=== PATIENT | male | born 1990 | race Caucasian/White ===

== ENCOUNTER 2020-04-27 11:28 | Emergency (ER) | payer SELFPAY ==
[2020-04-27 11:36] VITALS: BP 143/89; PULSE 67; RESP 16; TEMP 36.9; O2SAT 100; BMI 25.8
--- NOTE | 2020-04-27 12:01 | CT_ITS ---
WS: [id number] CT ABDOMEN AND PELVIS NONCONTRAST HISTORY: Left flank pain, history of kidney stones TECHNIQUE: Imaging performed through the abdomen and pelvis. Coronal and sagittal reformats are submi tted. All CT scans at [facility] use at least one of these dose optimization techniques: automated exposure control; mA and/or kV adjustment per patient size (includes targeted exams where d ose is matched to clinical indication); or iterative reconstruction. DLP: 877.4 mGy.cm COMPARISON: None available. Lower thorax: Lung bases are clear. Visualized heart is normal. No hiatal hernia. Liver: Mild hepatic steatosis. Liver is top normal size with no bile duct dilatation or mass. Gallbladder: Normal gallbladder. Pancreas: Normal size and attenuation. Normal pancreatic duct. No pancreatitis or mass. Spleen: Normal. Adrenal glands: Normal. No mass. Right kidney: No hydronephrosis or perinephric stranding. Nonobstructing calcifications in the centra l pelvis. Largest measures 3 mm in the lower pole. Normal RIGHT ureter. Left kidney: Normal size kidney. Mild LEFT hydronephrosis secondary to an irregular shaped or several adjacent calcifications in the proximal LEFT ureter. The entire cluster extends over length of 11 mm and AP by 8 mm. Additional numerous nonobstructing calcifications in the renal pelvis. Aorta: Normal abdominal aorta, no aneurysm or atherosclerosis. Small mesenteric and RIGHT lower quadrant lymph nodes. GI tract: The appendix is been removed. No GI tract obstruction. Abdominal wall: Negative. No hernia. Pelvis: Normally distended urinary bladder. No free fluid in the pelvis. Osseous structures: L4 bilateral pars defects. CT/CT kidney stone [id number] IMPRESSION: 1. Mild LEFT hydronephrosis secondary to an irregular single calcification or cluster of calcifications in the proximal ureter measuring 11 x 8 mm. 2. Additional bilateral nephrolithiasis which are nonobstructing. 3. Prior appendectomy.
[2020-04-27 12:03] VITALS: BP 161/74; PULSE 69; RESP 18; O2SAT 97
--- NOTE | 2020-04-27 12:03 | W.ED.ABDPA2 ---
HPI - Abdominal Pain General: Chief Complaint: Abdominal Pain Stated Complaint: left flank/abd pain Time Seen by Provider: 04/27/20 11:46 Source: patient Mode of arrival: ambulatory Limitations: no limitations History of Present Illness: MD elicited complaint: flank pain Pertinent past history: kidney stones Onset (ago): week(s) (2) Pain Consistency: intermittent Location: None Severity: moderate Quality: stabbing Exacerbating factors: nothing Relieving factors: nothing Associated Symptoms: Reports nausea and vomiting (one time today); Denies anorexia, belching, bloating, change in bowel habits, change in stool character, chills, coffee ground emesis, constipation, GI cramping, diarrhea, dyspepsia, dysuria, excessive flatus, fever(s), heartburn, hematochezia, hematuria, hematemesis, fecal incontinence, loose stools, melena, poor appetite and syncope Review of Systems General: Reports: 10 or more systems reviewed and unremarkable except in HPI and below Const: Denies: fever(s) or chills Eyes: Denies: change in vision or blurry vision ENMT: Denies: throat pain, enlarged tonsils, odynophagia, hoarseness, mouth pain or swelling of lips/tongue Card: Denies: syncope Resp: Denies: dyspnea, productive cough or non-productive cough GI: Reports: nausea and vomiting (one time today); Denies: hematemesis, coffee ground emesis, heartburn, diarrhea, constipation, bloating, GI cramping, belching, excessive flatus, fecal incontinence, change in bowel habits, change in stool character, hematochezia or melena : Denies: dysuria or hematuria Musc: Denies: neck pain, back pain or extremity swelling Skin/Breast: Denies: rash, pruritus or erythema Neuro: Denies: headache(s), numbness in extremities or weakness in extremities Endo: Denies: polyuria, polydipsia or tired all the time PFSH ED PFSH: Social History (Reviewed 04/27/20 @ 12:05 by Esau Galarza MD, [facility] – [place]) Smoking and tobacco status: never smoked Alcohol intake: never Substance/Drug Use: never Physical Exam Const: COMMON NORMALS: no acute distress, average body habitus, patient oriented x3, no limitations, healthy appearing, alert and well nourished Neck/C-Spine: COMMON NORMALS: no meningeal signs and no JVD Resp: COMMON NORMALS: normal respiratory effort, No retractions, No use of accessory muscles, clear to auscultation bilaterally and percussion normal AUSCULTATION: clear to auscultation bilaterally PERCUSSION: percussion normal Cardio: COMMON NORMALS: no JVD, regular rate, regular rhythm, S1 normal heart sound present, S2 normal heart sound present, No gallops present (Cardio), No clicks present (Cardio), No murmurs present (Cardio), No rub (Cardio) and Peripheral pulses 2+ throughout RATE: regular rate RHYTHM: regular rhythm HEART SOUNDS: S1 normal heart sound present and S2 normal heart sound present PERIPHERAL PULSES: Peripheral pulses 2+ throughout GI: COMMON NORMALS: Normal to inspection, nondistended, normoactive bowel sounds present, Soft to palpation, non-tender, No hepatosplenomegaly present, no masses and no bruits PALPATION: Yes Soft to palpation and Yes No hepatosplenomegaly present Back/Pelvis: GENERAL BACK: Yes CVA tenderness CVA tenderness: left Extremity: COMMON NORMALS: normal to inspection, full ROM, capillary refill normal, no calf tenderness and no pedal edema Neuro: COMMON NORMALS: patient oriented x3 SENSORIUM/ORIENTATION: Yes alert MENINGEAL SIGNS: Yes no meningeal signs Skin: COMMON NORMALS: no rashes or lesions noted, no wounds, turgor normal, no jaundice, no petechiae and no mottling GENERAL SKIN EXAM: no rashes or lesions noted and turgor normal Course Reevaluation(s): Reevaluation #1: Discussed his lab and imaging findings with him. Urinalysis is still pending but he has a pretty large calculus in his left ureter measuring 11 x 8 mm. He will likely need surgical removal and will call the urologist for further advice. Time: 13:02 Reevaluation #2: Explained my conversation with the urologist to him. Give him all the instruction by the urologist. We will discharge him home on oral pain medication. He voiced understanding and is in agreement with the plan. Time: 13:35 Consultations: Consultation #1: Discussed the patient with Dr. De Oliveira, urologist. He will see the patient in the office on Thursday since no signs of infection and pain is well controlled. On Thursday he would perform shockwave therapy to break the stones up. Patient should be n.p.o. from midnight on Thursday but can drink clear liquids up to 8 AM on Thursday. He should take laxatives on Thursday also. Obtain a KUB in the emergency department today so he can compare on Thursday when he gets another one. Time: 13:25 Vital Signs: Vital signs: Vital Signs Temperature 97.6 F 04/27/20 13:50 Pulse Rate 76 04/27/20 13:50 Respiratory Rate 18 04/27/20 13:50 Blood Pressure 129/71 04/27/20 13:50 Pulse Oximetry 96 04/27/20 13:50 MDM - Abdominal Pain MDM Narrative: Medical decision making narrative: Patient with a large ureteric calculus that will not pass. He has had pain for about 2 weeks from this calculus. Pain was well controlled in the emergency department and he will follow up with the urologist on Thursday for lithotripsy. No signs of urinary tract infection, and no white cell count elevation. Medical Records: Attestation: I reviewed the patient's medical records. Lab Data: Attestation: I reviewed the patient's lab results. Labs: Lab Results 04/27/20 04/27/20 04/27/20 Range/Units 12:02 12:02 12:46 WBC 8.8 (4.0-10.0) 10^3/ uL RBC 5.49 H (4.1-5.3) 10^6/u L Hgb 15.3 (11.7-16.6) g/dL Hct 48.0 (42.0-52.0) % MCV 87.4 (80-94) fL MCH 27.9 L (28.0-34.0) pg MCHC 31.9 (30.0-36.0) g/dL RDW 13.3 (12.1-15.1) % Plt Count 280 (130-400) 10^3/c mm MPV 9.7 (7.4-10.4) fL Neut % (Auto) 77.1 % Lymph % (Auto) 15.8 % [place] % (Auto) 4.8 % Eos % (Auto) 1.5 % Baso % (Auto) 0.6 % Neut # (Auto) 6.76 (1.8-7.7) 10^3/u L Lymph # (Auto) 1.4 (0.8-4.8) 10^3/u L [place] # (Auto) 0.4 (0.2-0.9) 10^3/u L Eos # (Auto) 0.1 (0.0-0.8) 10^3/u L Baso # (Auto) 0.1 (0.0-0.1) 10^3/u L Nucleated RBC % (a uto) 0 % Nucleated RBCs # 0.0 /100WBC Sodium 141 (136-145) mmol/L Potassium 4.4 (3.5-5.1) mmol/L Chloride 104 (98-107) mmol/L Carbon Dioxide 27 (22-29) mmol/L Anion Gap 14.4 (5-19) BUN 12 (6-20) mg/dL Creatinine 1.1 (0.7-1.2) mg/dL GFR Calculation 79.1 L (90-130) mL/min Glucose 109 (65-115) mg/dL Calculated Osmolal ity 292 (285-295) mOsm/k g Calcium 10.1 (8.5-10.5) mg/dL Total Bilirubin 0.5 (0.15-1.2) mg/dL AST 19 (0-40) U/L ALT 25 (0-41) U/L Alkaline Phosphata se 90 (40-130) IU/L Total Protein 8.3 (6.6-8.7) g/dL Albumin 5.1 (3.5-5.2) g/dL Globulin 3.2 (1.3-4.6) g/dL Lipase 31 (13-60) U/L Urine Color Yellow (Yellow) Urine Appearance Clear (CLEAR) Urine pH 8 H (5-7) Ur Specific Gravit y 1.010 (1.005-1.030) Urine Protein Neg (Negative) Urine Glucose (UA) Norm (Normal) Urine Ketones Negative (Negative) Urine Blood 3+ H (Negative) Urine Nitrate Negative (Negative) Urine Bilirubin Neg (Negative) Prot Sulfosalicyli c Acd Negative (Negative) Urine Urobilinogen Norm (Negative) mg/dL Ur Leukocyte Jessica ase Negative (Negative) Urine RBC 15-25 H (0-2) /hpf Urine WBC None (0-5) /hpf Ur Squamous Epith Cells 0-4 H (0-5) /hpf Amorphous Sediment Not Reportable Urine Bacteria Trace (NONE) /hpf Hyaline Casts 0-4 H /lpf Urine Mucus 1+ /hpf Imaging Data ^: CT Abd/Pel: Radiologist's impression: [facility] [address] [place] [address] CT Scan Report Signed Patient: Anjel Wallace #: [id number] : 1990Acct#:[id number] Age/Sex: 30 / MADM Date: 04/27/20 Loc: ERRoom/Bed: Attending Dr: Ordering Provider/Ordering MD: Esau Galarza MD, [facility] – [place] Date of Service: 04/27/20 Procedure(s): CT kidney stone 39455 Accession Number(s): [id number] Report Number: [id number] WS: [id number] CT ABDOMEN AND PELVIS NONCONTRAST HISTORY: Left flank pain, history of kidney stones TECHNIQUE: Imaging performed through the abdomen and pelvis. Coronal and sagittal reformats are submitted. All CT scans at [facility] use at least one of these dose optimization techniques: automated exposure control; mA and/or kV adjustment per patient size (includes targeted exams where dose is matched to clinical indication); or iterative reconstruction. DLP: 877.4 mGy.cm COMPARISON: None available. Lower thorax: Lung bases are clear. Visualized heart is normal. No hiatal hernia. Liver: Mild hepatic steatosis. Liver is top normal size with no bile duct dilatation or mass. Gallbladder: Normal gallbladder. Pancreas: Normal size and attenuation. Normal pancreatic duct. No pancreatitis or mass. Spleen: Normal. Adrenal glands: Normal. No mass. Right kidney: No hydronephrosis or perinephric stranding. Nonobstructing calcifications in the central pelvis. Largest measures 3 mm in the lower pole. Normal RIGHT ureter. Left kidney: Normal size kidney. Mild LEFT hydronephrosis secondary to an irregular shaped or several adjacent calcifications in the proximal LEFT ureter. The entire cluster extends over length of 11 mm and AP by 8 mm. Additional numerous nonobstructing calcifications in the renal pelvis. Aorta: Normal abdominal aorta, no aneurysm or atherosclerosis. Small mesenteric and RIGHT lower quadrant lymph nodes. GI tract: The appendix is been removed. No GI tract obstruction. Abdominal wall: Negative. No hernia. Pelvis: Normally distended urinary bladder. No free fluid in the pelvis. Osseous structures: L4 bilateral pars defects. CT/CT kidney stone [id number] IMPRESSION: 1. Mild LEFT hydronephrosis secondary to an irregular single calcification or cluster of calcifications in the proximal ureter measuring 11 x 8 mm. 2. Additional bilateral nephrolithiasis which are nonobstructing. 3. Prior appendectomy. Dictated By:Flaca Solis DO Signed By:Flaca Solis DOSigned Date/Time:04/27/20 1246 DD/ 1241 Other Xray: Radiologist's impression: [email or web address] [address] XRay Report Signed Patient: Anjel Wallace #: [id number] : 1990Acct#:[id number] Age/Sex: 30 / MADM Date: 04/27/20 Loc: ERRoom/Bed: Attending Dr: Ordering Provider/Ordering MD: Esau Galarza MD, [facility] – [place] Date of Service: 04/27/20 Procedure(s): XR KUB 24438 Accession Number(s): [id number] Report Number: [id number] WS: [id number] ABDOMEN: SUPINE FILM HISTORY: Preop COMPARISON: CT same day 04/27/2020. Normal bowel gas pattern. No no bone abnormality. Right kidney: No renal or ureteral stone identified. Left kidney: Cluster calcifications measures 9 mm in length and the LEFT upper abdomen. Corresponds to the single irregular calcification or cluster proximal ureteral calcifications. XR/XR KUB [id number] IMPRESSION: Proximal LEFT ureteral calcifications extend over a length of 9 mm. Dictated By:Flaca Solis DO Signed By:Flaca Solis DOSigned Date/Time:04/27/20 1356 DD/ 1355 Discharge Plan Discharge Patient Disposition: Home Clinical Impression: Ureteric calculus, Hydronephrosis due to obstruction of ureter Condition: Stable Prescriptions: New hydrocodone-acetaminophen 10-325 mg tablet 1 tab PO Q6H PRN (Reason: pain) Qty: 12 RF: 0 No Action No Known Home Medications RF: 0 Discharge Orders: Discharge Order (Routine); Ordered 04/27/20 Ordered By: Esau Galarza Referrals: Viet De Oliveira MD [Physician] - 04/30/20 8:00 am Discharge Diet: Usual diet Discharge Activity: Increase activity as tolerated Patient Instructions: Kidney Stones (ED), Renal Colic (ED) Activity Restrictions/Additional Instructions: Return for any new or worsening symptoms. Follow-up at the office of Dr. De Oliveira on Thursday04/30/20 at 8 AM for evaluation and shockwave therapy for your kidney stones. No food after midnight on Thursday into Thursday, but she can have clear liquids until 8 AM on Thursday. After 8 AM on Thursday nothing to eat or drink. Take laxatives on Thursday to clear your bowels. Further instructions will be given to you by the urologist. Coding Level of Care Code ED Senior Consultant for Chg Fwd Exam Comprehensive
[2020-04-27] MEDS: ketorolac 30 mg/mL INJ IVP (12:09)
[2020-04-27 12:12] LABS: Basophils # 0.1 10^3/uL (0.0-0.1); Basophils % 0.6 %; Eosinophils # 0.1 10^3/uL (0.0-0.8); Eosinophils % 1.5 %; Hemoglobin 15.3 g/dL (11.7-16.6); Lymphocytes # 1.4 10^3/uL (0.8-4.8); Lymphocytes % 15.8 %; Mean Corpuscular HGB Conc 31.9 g/dL (30.0-36.0); Mean Corpuscular Hemoglobin 27.9 pg (28.0-34.0); Mean Corpuscular Volume 87.4 fL (80-94); Mean Platelet Volume 9.7 fL (7.4-10.4); Monocytes # 0.4 10^3/uL (0.2-0.9); Monocytes % 4.8 %; Neutrophils # 6.76 10^3/uL (1.8-7.7); Neutrophils % 77.1 %; Nucleated Red Blood Cells % 0 %; Platelet Count 280 10^3/cmm (130-400); Red Blood Count 5.49 10^6/uL (4.1-5.3); Red Cell Distribution Width 13.3 % (12.1-15.1); White Blood Count 8.8 10^3/uL (4.0-10.0)
[2020-04-27 12:41] LABS: Alanine Aminotransferase 25 U/L (0-41); Albumin Level 5.1 g/dL (3.5-5.2); Alkaline Phosphatase 90 IU/L (40-130); Anion Gap 14.4 (5-19); Aspartate Amino Transferase 19 U/L (0-40); Blood Urea Nitrogen 12 mg/dL (6-20); Calcium 10.1 mg/dL (8.5-10.5); Carbon Dioxide 27 mmol/L (22-29); Chloride 104 mmol/L (98-107); Globulin 3.2 g/dL (1.3-4.6); Glomerular Filtration Rate 79.1 mL/min (90-130); Glucose 109 mg/dL (65-115); Lipase 31 U/L (13-60); Osmolality Calculated 292 mOsm/kg (285-295); Potassium 4.4 mmol/L (3.5-5.1); Sodium 141 mmol/L (136-145); Total Bilirubin 0.5 mg/dL (0.15-1.2); Total Protein 8.3 g/dL (6.6-8.7)
[2020-04-27 13:18] LABS: Add Urine Microscopic? YES; Bilirubin Urine Neg (Negative); Blood Urine 3+ (Negative); Glucose Urine UA Norm (Normal); Ketones Urine Negative (Negative); Leukocyte Esterase Urine Negative (Negative); Nitrate Urine Negative (Negative); Protein Urine Neg (Negative); Sulfosalicylic Acid Urine Negative (Negative); Urine Appearance Clear (CLEAR); Urine Color Yellow (Yellow); Urobilinogen Urine Norm (Negative); pH Urine 8 (5-7)
[2020-04-27 13:20] LABS: RBC Urine 15-25 /hpf (0-2); Squamous Epithelial Cell Urine 0-4 /hpf (0-5)
[2020-04-27 13:21] LABS: Add Urine Culture? No; Bacteria Urine TRACE /hpf; Hyaline Casts Urine 0-4 /lpf; Mucus Urine 1+ /hpf
[2020-04-27 13:33] VITALS: BP 126/71; PULSE 69; RESP 18; O2SAT 98
--- NOTE | 2020-04-27 13:40 | XR_ITS ---
WS: [id number] ABDOMEN: SUPINE FILM HISTORY: Preop COMPARISON: CT same day 04/27/2020. Normal bowel gas pattern. No no bone abnormality. Right kidney: No renal or ureteral stone identified. Left kidney: Cluster calcifications measures 9 mm in length and the LEFT upper abdomen. Corresponds t o the single irregular calcification or cluster proximal ureteral calcifications. XR/XR KUB [id number] IMPRESSION: Proximal LEFT ureteral calcifications extend over a length of 9 mm.
[2020-04-27 13:50] VITALS: BP 129/71; PULSE 76; RESP 18; TEMP 36.4; O2SAT 96
== END 2020-04-27 14:00 | disposition home or self-care (01) ==
PROVIDERS: Emergency Provider Family Medicine
DX: N13.2 Hydronephrosis with renal and ureteral calculous obstruction (principal)
CPT/HCPCS: 12345; 74018; 74176; 80053; 81001; 83690; 85025; 96374; 96375; 99283; J1885

== ENCOUNTER 2020-04-30 08:37 | Outpatient (CLI) | payer SELFPAY ==
--- NOTE | 2020-04-30 08:46 | XRR_ITS ---
PROCEDURE INFORMATION: Exam: XR Abdomen, 1 View Exam date and time: 04/30/2020 8:57 AM Age: 30 years old Clinical indication: Condition or disease; Other: Stones; Prior surgery; Surgery type: Hernia TECHNIQUE: Imaging protocol: XR of the abdomen. Views: Frontal supine view of the abdomen. 1 View. COMPARISON: CR XR KUB [id number] 04/27/2020 1:43 PM FINDINGS: Gastrointestinal tract: Normal. No bowel dilation. Organs: Multiple calcifications project on the left kidney. There is stable position of a 9 mm calcification projecting on the proximal left ureter. No other abnormal calcifications are seen. Bones/joints: Unremarkable. XR/XR KUB [id number] IMPRESSION: No change in the left renal calcifications in the position of the proximal left ureteral calculus.
== END 2020-04-30 08:38 | disposition home or self-care (01) ==
LOC: RAD 08:44
PROVIDERS: Visit Provider Urology
DX: N20.1 Calculus of ureter (principal)
CPT/HCPCS: 74018; 81003

== ENCOUNTER 2020-04-30 11:59 | Day surgery (SDC) | payer SELFPAY ==
[2020-04-30 12:11] VITALS: BMI 25.4
[2020-04-30] MEDS: sodium chloride 0.9% 1,000 ML 30 ML IV (12:46)
--- NOTE | 2020-04-30 13:17 | W.PM.OPSUD ---
Surgery/Procedure H&P Update DATE OF PROCEDURE: April 30, 2020 DATE H&P PERFORMED: 04/30/20 H&P UPDATE INFORMATION: I have reviewed H&P completed within last 30 days, I have examined patient prior to procedure, No changes to prior documentation and H&P is in [facility] EMR on date indicated PREOP DIAGNOSIS: Refractory left renal colic secondary to large left ureteral calculus PLANNED PROCEDURE: Operation Date: 04/30/20 13:45 Proposed Procedures p Cystoscopy 81592 38534 N20.1(Not Applicable) - Viet De Oliveira MD s Ureteral Stent Placement(Not Applicable) - Viet De Oliveira MD s ESWL(Not Applicable) - Viet De Oliveira MD
--- NOTE | 2020-04-30 13:34 | P.ANESASSM_ITS ---
Pre-Anesthetic Assessment Pre-Anesthetic Assessment: Height/Weight: Height 1.75 m Weight 78.018 kg Preop Diagnosis: Refractory left renal colic secondary to large left ureteral calculus Proposed Procedure: Operation Date: 04/30/20 13:45 Proposed Procedures p Cystoscopy 13269 10755 N20.1(Not Applicable) - MD irlanda Allen Ureteral Stent Placement(Not Applicable) - Viet De Oliveira MD s ESWL(Not Applicable) - Viet De Oliveira MD Was Beta Manuel taken within 24 hours: N/A Last intake: Intake Last Liquid Date 04/30/20 Last Liquid Time 11: Last Solid Date 04/29/20 Last Solid Time 20:00 Social: Social History: Tobacco Comment: Chews tobacco Exam: Pre-Anes Outpt Exam: alert, oriented x 3, clear to auscultation bilaterally and regular rate & rhythm Airway: Submandibular: WNL Cervical ROM: WNL MP: 2 Dentition: Full History/ROS: No significant complaints Anesthetic Plan: ASA status: 1 Anesthesia: General Risk of > 500 ml blood loss (7ml/kg in children): No Meds/Allergies Current Medications: Current Medications Generic Name Dose Route Start Last Admin Trade Name Freq PRN Reason Stop Dose Admin Sodium Chloride 1,000 mls @ 30 ml s/hr 04/30/20 12:15 04/30/20 12:46 Sodium Chloride 0.9% IV 05/01/20 12:14 30 mls/hr .Q24H AAMIR Administration PFSH Anesthesia PFSH: Medical History Renal stones Surgical History History of eye surgery left History of nasal surgery stent Hx of inguinal hernia repair Family History Mother Heart disease Father Hyperlipidemia Hypertension Social History Smoking and tobacco status: never smoked Alcohol intake: current Alcohol intake frequency: holidays/special occasions only Marital status: Current occupational status: employed Current occupation: works in the [employer] History of recent travel: No Data Anesthesia Cardiac Studies: No Data to Display
--- NOTE | 2020-04-30 14:06 | P.OP_ITS ---
Operative Report Date of procedure: April 30, 2020 Pre-op Diagnosis: Refractory left renal colic secondary to 9 mm left proximal ureteral stone Pre-op Diagnosis: Multiple left renal calculi Post-op diagnosis: same Procedure Done: 1. Extracorporeal shockwave lithotripsy left proximal ureteral calculus, no stent Surgeon: Alvino Production Mechanic: Armand Lanier: Lithotripsy radiography technician Anesthesia: General Estimated blood loss: None Urine output: Not measured Complications: None Findings: Total of 3000 shocks administered with excellent change Condition: stable Disposition: PACU Brief History: Anjel is a very pleasant 30-year-old white male who was evaluated for the first time today by me in the office after being seen in the emergency department several days ago with complaints of severe left renal colicky symptoms. He was found to have a 9+ millimeter stone in the left proximal ureter with obstructive changes and multiple stones seen in the kidney. No evidence of infection. He has had intermittent pain since that time and KUB today showed no evidence of progression. He was offered further conservative therapy with hopes of spontaneous passage although it was felt that that was a fairly low chance. He was also offered intervention either endoscopically or with ESWL after detailed discussion of both he elected to proceed with ESWL and possible stent. Procedure: After urgent evaluation examination and obtaining of informed consent he was taken to the operating suite on 04/30/2020 where general anesthesia was administered without difficulty after appropriate timeout was performed, SCDs confirmed to be functioning, preoperative antibiotics administered, beta-yulia protocol confirmed. Positioned on the Dornier unit in supine position such that the left proximal ureteral stone was at the focal point. Biplanar fluoroscopy was utilized. Shockwave was initiated intensity of 1 and advanced an intensity of 4 with an approximately 3-minute pause after approximately 300 shocks. The stone demonstrated change at approximately: 150 shocks. It was dramatically changed at around 1250 shocks and in the focal point was shifted to multiple stones within the left kidney. Individually these were treated and all showed good response. This included a 3 to 4 stones. The final 1000 shocks to complete a total of 3000 was administered to the column of fragments in the proximal ureter At the completion of the procedure the change was dramatic. Because of these changes it was decided to NOT leave a stent indwelling. He tolerated the procedure well without complications and was awakened in the operating room and returned to the recovery in stable condition. PLANS: 1. Anticipate discharge from outpatient surgery today 2. Use pain medicine as needed 3. Prescription for TAMSULOSIN sent
[2020-04-30] MEDS: levofloxacin-dextrose 5 % 500 MG/100 ML PREMIX 100 MG IV (14:40)
[2020-04-30 15:41] VITALS: BP 160/101; PULSE 99; RESP 16; TEMP 36.7; O2SAT 98
[2020-04-30 15:45] VITALS: BP 167/98; PULSE 91; RESP 17; O2SAT 98
[2020-04-30 15:50] VITALS: BP 158/92; PULSE 87; RESP 16; TEMP 36.6; O2SAT 99
[2020-04-30 15:51] VITALS: BP 142/78; PULSE 80; RESP 16; TEMP 36.6; O2SAT 99
[2020-04-30 16:05] VITALS: BP 150/74; PULSE 71; RESP 16; TEMP 36.6; O2SAT 99
--- NOTE | 2020-04-30 17:09 | PM.PACU ---
PACU note PACU note: VSS Post-Anesthesia Exam: awake Disposition: discharged
== END 2020-04-30 16:35 | disposition home or self-care (01) ==
PROVIDERS: PCP Nurse Practitioner Family; Visit Provider Urology
PROC: (CPT 50590; 2020-04-30 13:45)
DX: N20.2 Calculus of kidney with calculus of ureter (principal)
CPT/HCPCS: 50590; 12345; J1100; J1956; J2405; J2704; J3010; J3490; J7030

== ENCOUNTER 2020-05-04 07:44 | Outpatient (CLI) | payer SELFPAY ==
--- NOTE | 2020-05-04 07:30 | XR_ITS ---
WS: [id number] KUB, 05/04/2020 Clinical Data: URETERAL STONE Comparison: KUB, 04/30/2020 Findings: No abnormal intraabdominal masses are seen. There is no dilatated small bowel or evidence of obstruct ion. There are calcifications overlying the left kidney. The largest calcification which was in the proxim al left ureter is not present. No right renal calcifications are seen. XR/XR KUB [id number] Impression: 1. 0.9 cm proximal left ureteral calcification is not seen. 2. Smaller calcifications still overlie the left kidney.
== END 2020-05-04 07:45 | disposition home or self-care (01) ==
LOC: RAD 07:47
PROVIDERS: PCP Nurse Practitioner Family; Visit Provider Urology
DX: N20.1 Calculus of ureter (principal); N20.0 Calculus of kidney
CPT/HCPCS: 74018; 81003; 82365

== ENCOUNTER → 2021-01-03 15:10 | Outpatient (BNVA) | payer OTHER, SELFPAY | PROVIDERS: PCP Nurse Practitioner Family; Visit Provider Nurse Practitioner Family | DX: Z20.822 Contact with and (suspected) exposure to COVID-19 (principal) | CPT/HCPCS: 87635 ==

== ENCOUNTER → 2021-01-05 16:41 | Outpatient (BNVA) | payer SELFPAY | PROVIDERS: PCP Nurse Practitioner Family; Visit Provider Registered Nurse Neonatal Intensive Care | DX: J02.0 Streptococcal pharyngitis (principal) | CPT/HCPCS: 87880 ==

== ENCOUNTER → 2021-05-01 15:17 | Outpatient (BNVA) | payer BC, SELFPAY | PROVIDERS: PCP Nurse Practitioner Family; Visit Provider Nurse Practitioner Family | DX: Z20.822 Contact with and (suspected) exposure to COVID-19 (principal) | CPT/HCPCS: 87635 ==

== ENCOUNTER → 2021-06-17 16:53 | Outpatient (BNVA) | payer BC, SELFPAY | PROVIDERS: PCP Nurse Practitioner Family; Visit Provider Nurse Practitioner Family | DX: Z20.822 Contact with and (suspected) exposure to COVID-19 (principal) | CPT/HCPCS: 87635 ==

== ENCOUNTER → 2022-03-07 10:43 | Outpatient (BNVA) | payer SELFPAY | PROVIDERS: PCP Nurse Practitioner Family; Visit Provider Nurse Practitioner Family | DX: R07.89 Other chest pain (principal) | CPT/HCPCS: 71046; 80053; 84443; 85025 ==

== ENCOUNTER 2022-06-05 13:39 | Inpatient (IN) | payer BC, SELFPAY ==
[2022-06-05 13:40] VITALS: BP 144/86; PULSE 92; RESP 16; TEMP 37.1; O2SAT 99
[2022-06-05 14:10] LABS: Basophils # 0.1 10^3/uL (0.0-0.1); Basophils % 0.5 %; Eosinophils # 0.3 10^3/uL (0.0-0.8); Eosinophils % 3.3 %; Hematocrit 43.6 % (42.0-52.0); Hemoglobin 14.4 g/dL (11.7-16.6); Lymphocytes # 1.9 10^3/uL (0.8-4.8); Lymphocytes % 19.7 %; Mean Corpuscular Hemoglobin 28.7 pg (28.0-34.0); Mean Corpuscular Volume 86.9 fl (80-94); Monocytes % 10.6 %; Neutrophils # 6.29 10^3/uL (1.8-7.7); Neutrophils % 65.6 %; Nucleated Red Blood Cells % 0 %; Platelet Count 236 10^3/cmm (130-400); Red Blood Count 5.02 10^6/uL (4.1-5.3); Red Cell Distribution Width 13.8 % (12.1-15.1); White Blood Count 9.6 10^3/uL (4.0-10.0)
[2022-06-05 14:36] LABS: Alanine Aminotransferase 23 U/L (0-41); Albumin Level 4.6 g/dL (3.5-5.2); Alkaline Phosphatase 94 U/L (40-130); Anion Gap 14.9 (5-19); Aspartate Amino Transferase 16 U/L (0-40); Blood Urea Nitrogen 10 mg/dL (6-20); Calcium 8.9 mg/dL (8.5-10.5); Carbon Dioxide 26 mmol/L (22-29); Chloride 101 mmol/L (98-107); Globulin 3.3 g/dL (1.3-4.6); Glomerular Filtration Rate 98.4 mL/min (90-130); Glucose 97 mg/dL (65-115); Osmolality Calculated 285 mOsm/kg (285-295); Potassium 3.9 mmol/L (3.5-5.1); Sodium 138 mmol/L (136-145); Total Bilirubin 0.9 mg/dL (0.15-1.2); Total Protein 7.9 g/dL (6.6-8.7)
--- NOTE | 2022-06-05 14:40 | CTR_ITS ---
PROCEDURE INFORMATION: Exam: CT Orbits With Contrast Exam date and time: 06/05/2022 3:13 PM Age: 32 years old Clinical indication: Mass, lump, or swelling; Other: Left orbit; Additional info: Concern for left orbital cellulitis TECHNIQUE: Imaging protocol: Computed tomography of the orbits with contrast. Radiation optimization: All CT scans at this facility use at least one of these dose optimization techniques: automated exposure control; mA and/or kV adjustment per patient size (includes targeted exams where dose is matched to clinical indication); or iterative reconstruction. Contrast material: OMNI 350; Contrast volume: 100 ml; Contrast route: INTRAVENOUS (IV); COMPARISON: MR head wo con* [id number] 05/13/2018 5:05 PM RADIATION DOSE METRICS: Total DLP (mGy-cm): 339.76 FINDINGS: Paranasal sinuses: Opacified left ethmoid sinuses. Trace debris in the left frontal and right anterior ethmoid sinuses. There is also mucosal thickening of the left sphenoid sinus. Orbital cavities: There is localized extension of the inflammatory changes of the left ethmoid sinuses extending into the extraconal orbital fat. Globes are unremarkable. Bones/joints: No acute fracture. Erosion through the left lamina papyracea. Soft tissues: Left preseptal soft tissue inflammation/swelling along with the left cheek. CT/CT orbit BI w con [id number] IMPRESSION: Multifocal sinusitis with localized extension into the left orbit consistent with orbital cellulitis. Findings were discussed with FADI DUNN at 06/05/2022 3:54 PM HOROLOGIST APPRENTICE.
--- NOTE | 2022-06-05 15:02 | ED_ITS ---
Documented by User: HARRIS Vegas 06/05/22 16:47 HPI - Eye Problem General: Chief complaint: Eye Problems Stated complaint: eye swollen Time Seen by Provider: 06/05/22 13:48 History of Present Illness: Patient sent here from urgent care for concern of left eye orbital cellulitis. Patient reports that last night his eyes started becoming red and somewhat painful. He reports that he woke up this morning there was swollen shut and very painful. Patient denies any injury to the eye that he is aware of. He denies any fever, chills, nausea, vomiting. He does report that he can see out of the eye if he holds the lids open. Associated symptoms: Denies fever(s) or headache(s) Review of Systems Const: Denies: fever(s), chills or body aches Eyes: Reports: other (Swelling, redness surrounding eye with eye pain) Card: Denies: chest pain or palpitations Resp: Denies: dyspnea, productive cough or non-productive cough Neuro: Denies: headache(s) PFS ED PFSH: Medical History Renal stones Surgical History History of eye surgery left History of nasal surgery stent Hx of inguinal hernia repair Family History Mother Heart disease Father Hyperlipidemia Hypertension Social History Smoking and tobacco status: former smoker Alcohol intake: current Alcohol intake frequency: holidays/special occasions only Marital status: Current occupational status: employed Current occupation: works in the [employer] History of recent travel: No Physical Exam Const: COMMON NORMALS: no acute distress, patient oriented x3 and alert Eye: OTHER: Left eye with erythema and edema encircling the entire eye including upper and lower lids extending over to the bridge of the nose. Eye is swollen shut. I am able to open the eyelids manually and patient reports baseline vision. He is able to move in all 6 cardinal lilly however he has increased eye pain with l ooking up or looking up into the left. The eye is tender To light palpation around the orbit and over the upper eyelid. Neck/C-Spine: COMMON NORMALS: no JVD Resp: COMMON NORMALS: normal respiratory effort, No use of accessory muscles and clear to auscultation bilaterally AUSCULTATION: clear to auscultation bilaterally Cardio: COMMON NORMALS: no JVD, regular rate, regular rhythm, S1 normal heart sound present, S2 normal heart sound present and No murmurs present (Cardio) RATE: regular rate RHYTHM: regular rhythm HEART SOUNDS: S1 normal heart sound present and S2 normal heart sound present Neuro: COMMON NORMALS: patient oriented x3 SENSORIUM/ORIENTATION: Yes alert Course Vital Signs: Vital signs: Vital Signs Temperature 98.8 F 06/05/22 13:40 Pulse Rate 92 06/05/22 13:40 Respiratory Rate 18 06/05/22 16:33 Blood Pressure 144/86 06/05/22 13:40 Pulse Oximetry 99 06/05/22 13:40 Oxygen Delivery Me thod 06/05/22 13:40 MDM - Eye Problem Medical Decision Making Concern for orbital cellulitis CT shows left-sided sinusitis with extension into the orbit?orbital cellulitis. Result called to me by radiologist at 2099. Paged ophthalmology at [phone] Franco Richardson who advised that he would transfer patient to either [facility] in [place] or [facility] as patient needs close monitoring of eye pressures given his current pain with EOMs. He advised the patient would likely require intervention. He recommends vancomycin plus gram-negative antibiotic coverage to be started. It is allergic to penicillin so vancomycin and Cipro were started. 1647?working to find acceptance for transfer. Lab Data 06/05/22 14:00 06/05/22 14:[address] 06/05/22 14:40 IMPRESSION: Multifocal sinusitis with localized extension into the left orbit consistent with orbital cellulitis. Findings were discussed with FADI DUNN at 06/05/2022 3:54 PM [employer]GE[employer]. Laboratory Results WBC 9.6 10^3/uL (4.0-10.0) 06/05/22 14:00 RBC 5.02 10^6/uL (4.1-5.3) 06/05/22 14:00 Hgb 14.4 g/dL (11.7-16.6) 06/05/22 14:00 Hct 43.6 % (42.0-52.0) 06/05/22 14:00 MCV 86.9 fl (80-94) 06/05/22 14:00 MCH 28.7 pg (28.0-34.0) 06/05/22 14:00 MCHC 33.0 g/dL (30.0-36.0) 06/05/22 14:00 RDW 13.8 % (12.1-15.1) 06/05/22 14:00 Plt Count 236 10^3/cmm (130-400) 06/05/22 14:00 MPV 10.0 fL (7.4-10.4) 06/05/22 14:00 Neut % (Auto) 65.6 % 06/05/22 14:00 Lymph % (Auto) 19.7 % 06/05/22 14:00 [place] % (Auto) 10.6 % 06/05/22 14:00 Eos % (Auto) 3.3 % 06/05/22 14:00 Baso % (Auto) 0.5 % 06/05/22 14:00 Neut # (Auto) 6.29 10^3/uL (1.8-7.7) 06/05/22 14:00 Lymph # (Auto) 1.9 10^3/uL (0.8-4.8) 06/05/22 14:00 [place] # (Auto) 1.0 10^3/uL (0.2-0.9) H 06/05/22 14:00 Eos # (Auto) 0.3 10^3/uL (0.0-0.8) 06/05/22 14:00 Baso # (Auto) 0.1 10^3/uL (0.0-0.1) 06/05/22 14:00 Nucleated RBC % (auto) 0 % 06/05/22 14:00 Nucleated RBCs # 0.0 /100WBC 06/05/22 14:00 Sodium 138 mmol/L (136-145) 06/05/22 14:00 Potassium 3.9 mmol/L (3.5-5.1) 06/05/22 14:00 Chloride 101 mmol/L (98-107) 06/05/22 14:00 Carbon Dioxide 26 mmol/L (22-29) 06/05/22 14:00 Anion Gap 14.9 (5-19) 06/05/22 14:00 BUN 10 mg/dL (6-20) 06/05/22 14:00 Creatinine 0.9 mg/dL (0.7-1.2) 06/05/22 14:00 GFR Calculation 98.4 mL/min (90-130) 06/05/22 14:00 Glucose 97 mg/dL (65-115) 06/05/22 14:00 Calculated Osmolality 285 mOsm/kg (285-295) 06/05/22 14:00 Calcium 8.9 mg/dL (8.5-10.5) 06/05/22 14:00 Total Bilirubin 0.9 mg/dL (0.15-1.2) 06/05/22 14:00 AST 16 U/L (0-40) 06/05/22 14:00 ALT 23 U/L (0-41) 06/05/22 14:00 Alkaline Phosphatase 94 U/L (40-130) 06/05/22 14:00 Total Protein 7.9 g/dL (6.6-8.7) 06/05/22 14:00 Albumin 4.6 g/dL (3.5-5.2) 06/05/22 14:00 Globulin 3.3 g/dL (1.3-4.6) 06/05/22 14:00 Discharge Plan Discharge Patient Disposition: Admitted As Inpatient Clinical Impression: Orbital cellulitis on right Condition: Stable Referrals: Lilly Khan FNP-C [Primary Care Provider] - Coding Level of Care Code ED Manager Database Administration for Chg Fwd Exam Expanded Problem Focused Documented by User: Adarsh Liang MD 06/05/22 17:36 HPI - Eye Problem General: Chief complaint: Eye Problems Stated complaint: eye swollen Time Seen by Provider: 06/05/22 13:48 PFSH ED PFSH: Medical History Renal stones Surgical History History of eye surgery left History of nasal surgery stent Hx of inguinal hernia repair Family History Mother Heart disease Father Hyperlipidemia Hypertension Social History Smoking and tobacco status: former smoker Alcohol intake: current Alcohol intake frequency: holidays/special occasions only Marital status: Current occupational status: employed Current occupation: works in the [employer] History of recent travel: No Course Vital Signs: Vital signs: Vital Signs Temperature 98.8 F 06/05/22 13:40 Pulse Rate 92 06/05/22 13:40 Respiratory Rate 18 06/05/22 16:33 Blood Pressure 144/86 06/05/22 13:40 Pulse Oximetry 99 06/05/22 13:40 Oxygen Delivery Me thod 06/05/22 13:40 MDM - Eye Problem Medical Decision Making Concern for orbital cellulitis CT shows left-sided sinusitis with extension into the orbit?orbital cellulitis. Result called to me by radiologist at 3192. Paged ophthalmology at [phone] Franco Richardson who advised that he would transfer patient to either [facility] in [place] or [facility] as patient needs close monitoring of eye pressures given his current pain with EOMs. He advised the patient would likely require intervention. He recommends vancomycin plus gram-negative antibiotic coverage to be started. It is allergic to penicillin so vancomycin and Cipro were started. 1647?working to find acceptance for transfer. Patient presents with orbital cellulitis noted intraocular pressures are c urrently 17 he has extraocular movement intact I spoke to Dr. Richardson of ophthalmology will admit here at this time did try to transfer there is no bed availability at [facility] or [facility] I spoke to the hospitalist will admit and Dr. Richardson is consulted for ophthalmology Lab Data 06/05/22 14:00 06/05/22 14:[address] 06/05/22 14:40
[2022-06-05] MEDS: iohexol 350 mg/mL 500 mL Btl (per mL) IV (15:18)
[2022-06-05 16:10] VITALS: RESP 18
[2022-06-05] MEDS: morphine 4 mg/mL SDV 1 mL 2 MG IVP ×2 (16:10→16:33)
[2022-06-05] MEDS: ondansetron 2 mg/ML SDV 2 mL 4 MG IVP (16:10)
[2022-06-05 16:33] VITALS: RESP 18
[2022-06-05] MEDS: tetracaine 0.5% Op Soln 4 mL Btl 1 DROP EYE-RIGHT (17:01)
[2022-06-05] MEDS: vancomycin 1,000 MG in sodium chloride 0.9% 250 ML 250 MG IV (17:55)
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
--- NOTE | 2022-06-05 18:51 | PC.NURSE ---
Stopped Vancomycin at 1845 due to pt c/o itching and slight redness noted on chest/abdomen. Will request order for Benadryl.
[2022-06-05] MEDS: diphenhydrAMINE 50 mg/mL SDV 1mL IVP (18:55)
[2022-06-05] MEDS: ciprofloxacin 400 MG/200 ML PREMIX 200 MG IV (18:58)
[2022-06-05 20:32] VITALS: BP 146/92; PULSE 81; RESP 20; TEMP 36.6; O2SAT 97
[2022-06-05 21:29] VITALS: RESP 16
[2022-06-05] MEDS: HYDROmorphone 1 mg/mL INJ 1 mL IVP (21:29)
[2022-06-05] MEDS: metroNIDAZOLE IV 500 MG/100 ML PREMIX 100 MG IV (21:35)
[2022-06-06] VITALS (13 sets, daily range): BP systolic 119–143; BP diastolic 77–89; PULSE 71–91; RESP 15–20; TEMP 36.4–37.1; O2SAT 97–98
[2022-06-06] MEDS: ketorolac 30 mg/mL INJ IVP ×2 (00:24→19:53)
[2022-06-06] MEDS: HYDROmorphone 1 mg/mL INJ 1 mL IVP ×2 (03:28→11:04)
[2022-06-06] MEDS: ciprofloxacin 400 MG/200 ML PREMIX 200 MG IV ×2 (03:31→17:08)
[2022-06-06] MEDS: metroNIDAZOLE IV 500 MG/100 ML PREMIX 100 MG IV ×3 (04:41→20:47)
[2022-06-06] MEDS: acetaminophen 325 mg Tablet 650 MG PO (04:46)
[2022-06-06 05:30] LABS: Basophils # 0.1 10^3/uL (0.0-0.1); Basophils % 0.8 %; Eosinophils # 0.3 10^3/uL (0.0-0.8); Hematocrit 41.3 % (42.0-52.0); Hemoglobin 13.1 g/dL (11.7-16.6); Lymphocytes % 25.6 %; Mean Corpuscular HGB Conc 31.7 g/dL (30.0-36.0); Mean Corpuscular Hemoglobin 28.1 pg (28.0-34.0); Mean Corpuscular Volume 88.6 fl (80-94); Mean Platelet Volume 10.5 fL (7.4-10.4); Neutrophils # 4.55 10^3/uL (1.8-7.7); Neutrophils % 57.3 %; Nucleated Red Blood Cells % 0 %; Platelet Count 207 10^3/cmm (130-400); Red Blood Count 4.66 10^6/uL (4.1-5.3); Red Cell Distribution Width 13.7 % (12.1-15.1); White Blood Count 7.9 10^3/uL (4.0-10.0)
[2022-06-06] MEDS: linezolid premix 600 MG/300 ML PREMIX 300 MG IV ×2 (05:52→18:31)
[2022-06-06 05:57] LABS: Anion Gap 13.1 (5-19); Blood Urea Nitrogen 14 mg/dL (6-20); Calcium 8.7 mg/dL (8.5-10.5); Carbon Dioxide 25 mmol/L (22-29); Chloride 102 mmol/L (98-107); Glomerular Filtration Rate 87.2 mL/min (90-130); Glucose 113 mg/dL (65-115); Osmolality Calculated 283 mOsm/kg (285-295); Potassium 4.1 mmol/L (3.5-5.1); Sodium 136 mmol/L (136-145)
--- NOTE | 2022-06-06 11:11 | PC.CHAP ---
Pastoral Care Encounter/Spiritual Assessment Type of Contact [] Declined behavioral geneticist visit [] Patient/Family/Request visit [] Outpatient visit [] Follow-up visit [] Physician referral [] Code/Alert [x] Routine visit [] Staff referral [] Actively dying [] Patient sleeping [x] Family support [] [] Out of room [] Palliative care [] [] Receiving care in room [] Pre-surgical visit [] Trauma [] Long length of stay [] ICU visit [] Other: Relational/Emotional Strength [x] Patient feels connected with others/family/visitors/staff [] Distress [] Loneliness/isolation [] Abandonment Spirituality of Patient [x] Person of Jerri [] Attends Tenriism of their Jerri [x] Believes in Prayer [] Reads Bible or Temple materials [] There are Spiritual issues to be addressed Radiologist Chief Of Breast Imaging Interventions [x] Prayer [] Active listening [] Non-anxious presence [] Spiritual/emotional support [] Crisis/trauma care [] Spiritual counseling [] Bereavement support [] Provided bereavement packet [] Provided Bible/devotional materials [] Provided toy/stuffed animal, coloring book to patient or family member [] Provided Communion [] Anointing/Garrett [] Salvation [x] Completed spiritual assessment [] Other: Impact on Illness or Injury [] Angry [] Fearful [] Anxious [] Often cries [] Exhaustion [] Unable to work [] Unable to attend mandaen [] Unable to walk/stand [] Unable to read [] Unable to drive [] Unable to eat/drink [] Unable to sleep [] Unable to be with family [] Patient intubated [] Other: Summary Time spent with patient 15 min
[2022-06-06] MEDS: oxyCODONE-APAP 5-325 mg Tablet 1 TAB PO (13:38)
[2022-06-06] MEDS: oxyCODONE-APAP 5-325 mg Tablet 2 TAB PO ×2 (18:29→22:40)
--- NOTE | 2022-06-06 20:47 | P.PN_ITS ---
Subjective Subjective: Early this morning he did not feel there was much change when he took the photo, however, later on showing some improvement. Decreasing swelling of the left eyelid. Still having pain and pain medication to be adjusted several times today due to his high metabolism. This morning was complaining of more pressure behind his eye. Abdominal probe essentially unavailable, but obtained eventually, however, reliable intraocular pressure initially could not be obtained. There are were able to be obtained by the glass mold repairer found to be 16. Vitals/I&O/Wt Last Vital Signs Temp 97.9 F 06/06/22 19:54 Pulse 86 06/06/22 19:54 Resp 16 06/06/22 19:54 BP 143/86 06/06/22 19:54 Pulse Ox 97 06/06/22 19:54 O2 Del Method 06/06/22 19:54 06/06/22 06/06/22 06/06/22 06:59 14:59 22:59 Intake Total 1500 / 2008.333 720 / 720 1200 / 1920 Output Total 950 / 950 Balance 1500 / 1808.333 -230 / -230 1200 / 970 Weight last 48 hrs Weight 80.739 kg Physical Exam Narrative: Accompanied by his . Const: COMMON NORMALS: patient oriented x3 and alert GENERAL APPEARANCE: cooperative ORIENTATION/CONSCIOUSNESS: Yes awake HENMT: COMMON NORMALS: oropharynx normal Eye: OTHER: Swollen red left eyelid with mild periorbital swelling, he is able to force open the eyelid without assistance, able to move his eye. Pupils equal. Vision is blurry without his contact. Neck/C-Spine: COMMON NORMALS: no JVD Resp: COMMON NORMALS: normal respiratory effort and clear to auscultation bilaterally AUSCULTATION: clear to auscultation bilaterally Cardio: COMMON NORMALS: no JVD, regular rhythm, S1 normal heart sound present, S2 normal heart sound present and No murmurs present (Cardio) RHYTHM: regular rhythm HEART SOUNDS: S1 normal heart sound present and S2 normal heart sound present GI: COMMON NORMALS: Normal to inspection, nondistended, normoactive bowel sounds present, Soft to palpation and non-tender PALPATION: Yes Soft to palpation Extremity: COMMON NORMALS: no joint enlargement and no pedal edema Neuro: COMMON NORMALS: patient oriented x3 and moves all extremities SENSORIUM/ORIENTATION: Yes alert Skin: COMMON NORMALS: no rashes or lesions noted (Apart from orbital cellulitis as above.) GENERAL SKIN EXAM: no rashes or lesions noted (Apart from orbital cellulitis as above.) Data 06/06/22 04:43 06/06/22 04:43 Micro: Microbiology 06/05/22 17:20 Blood Culture - Preliminary Blood NEGATIVE TO DATE 06/05/22 17:15 Blood Culture - Preliminary Blood NEGATIVE TO DATE A&P Assessment and plan (1) Orbital cellulitis on left: Mild improvement today in appearance of swelling over the left eyelid. Still in pain and in the morning complaining of some pressure. Later on today assessed also by ophthalmology. Intraocular pressure found to be 16. Continue antibiotics. This morning discussed with him also consideration of empiric antifungal, although he is concerned about adverse effects and overall as he is showing improvement and otherwise symptoms not suggestive of fungal infection for now antifungals held off. Per discussion with ophthalmology and started on steroid 80 mg prednisone. Continue empiric antibiotic coverage with ciprofloxacin due to penicillin allerg y. Vancomycin was stopped yesterday due to him developing rash and complain of itching during the infusion. Was switched over to linezolid. Flagyl for anaerobic coverage. Decongestants. Assessed by Ortho, so far not needing surgical intervention. Reported he may respond better to oxycodone for pain control. Added oxycodone 5 mg, with partial response increased to 10 mg. Hopefully this may reduce use of Dilaudid. Follow-up with ENT. Plan History of eye surgery, he reports with prior placement of a a stent , although reports that it was done due to him having difficulty moving his eye with healing. States that the stent is still in place. Discussed with Optho. Multifocal sinusitis: Initial treatment as above. Follow-up with ENT. History of kidney stones. EtOH, sometimes nightly up to 2-3 drinks which she states does not get them drawn, no history of withdrawal. Attestations Medical Necessity Statement*: Continue admission for assessment of management of orbital cellulitis. Coding Level of Care Code Acute Take Away Worker for Margarito Antoine Diagnoses Orbital cellulitis on left H05.012
--- NOTE | 2022-06-06 21:48 | PC.NURSE ---
pt requested medication to help him sleep, Dr. Tian notified and gave new order for Benadryl 50mg PO once for sleep.
[2022-06-06] MEDS: diphenhydrAMINE 50 mg Capsule PO (22:00)
[2022-06-07] VITALS (7 sets, daily range): BP systolic 125–154; BP diastolic 68–81; PULSE 78–97; RESP 16–18; TEMP 36.4–37.1; O2SAT 95–98
[2022-06-07] MEDS: ciprofloxacin 400 MG/200 ML PREMIX 200 MG IV ×2 (04:33→18:17)
[2022-06-07] MEDS: metroNIDAZOLE IV 500 MG/100 ML PREMIX 100 MG IV ×3 (05:02→21:17)
[2022-06-07 05:19] LABS: Basophils % 0.7 %; Eosinophils # 0.4 10^3/uL (0.0-0.8); Eosinophils % 5.9 %; Hematocrit 40.9 % (42.0-52.0); Hemoglobin 13.6 g/dL (11.7-16.6); Lymphocytes # 1.7 10^3/uL (0.8-4.8); Lymphocytes % 29.3 %; Mean Corpuscular HGB Conc 33.3 g/dL (30.0-36.0); Mean Corpuscular Hemoglobin 28.8 pg (28.0-34.0); Mean Corpuscular Volume 86.5 fl (80-94); Mean Platelet Volume 10.1 fL (7.4-10.4); Monocytes # 0.7 10^3/uL (0.2-0.9); Neutrophils # 3.11 10^3/uL (1.8-7.7); Neutrophils % 52.8 %; Nucleated Red Blood Cells % 0 %; Platelet Count 198 10^3/cmm (130-400); Red Blood Count 4.73 10^6/uL (4.1-5.3); Red Cell Distribution Width 13.3 % (12.1-15.1); White Blood Count 5.9 10^3/uL (4.0-10.0)
[2022-06-07 05:41] LABS: Anion Gap 12.1 (5-19); Blood Urea Nitrogen 11 mg/dL (6-20); Carbon Dioxide 25 mmol/L (22-29); Chloride 102 mmol/L (98-107); Glomerular Filtration Rate 98.4 mL/min (90-130); Glucose 108 mg/dL (65-115); Osmolality Calculated 280 mOsm/kg (285-295); Potassium 4.1 mmol/L (3.5-5.1); Sodium 135 mmol/L (136-145)
[2022-06-07] MEDS: linezolid premix 600 MG/300 ML PREMIX 300 MG IV ×2 (06:26→18:35)
[2022-06-07] MEDS: ketorolac 30 mg/mL INJ IVP (09:18)
[2022-06-07] MEDS: predniSONE 20 mg Tablet 80 MG PO (13:37)
[2022-06-07] MEDS: oxyCODONE 5 mg IR Tab/Cap PO ×2 (13:37→21:51)
--- NOTE | 2022-06-07 20:51 | P.PN_ITS ---
Subjective Subjective: Today with significant improvement in swelling, mild residual swelling but states still having pain about 7. Vision unchanged. Discussed with him recommendation for 2 weeks of IV antibiotics, he states he will not be able to do that. States he will be going back to work the day after and plans to discharge from the hospital tomorrow. Discussed with him risk of possible failure of therapy. 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 Recommend modified duties. He states that he knows how to keep his eye protected and to exercise caution with equipment. Discussed also would not be able to operate heavy machinery while on pain medication. He states overall pain has been improving, but he anticipates in case continue to progress with IV antibiotics and steroid he will wean off opioid tomorrow. Otherwise uses combination of acetaminophen and ibuprofen in case needs for pain control. Requests for shot of Benadryl for sleep tonight. Discussed with him concern regarding risks of this medicine. Discussed trazodone if needed for sleep with which he is agreeable. Vitals/I&O/Wt Last Vital Signs Temp 98.7 F 06/07/22 16:00 Pulse 86 06/07/22 16:00 Resp 16 06/07/22 16:00 BP 135/81 06/07/22 16:00 Pulse Ox 96 06/07/22 16:00 O2 Del Method 06/07/22 16:00 06/07/22 06/07/22 06/07/22 06:59 14:59 22:59 Intake Total 300 / 2320 540 / 540 580 / 1120 Balance 300 / 1370 540 / 540 580 / 1120 Physical Exam Const: COMMON NORMALS: patient oriented x3 and alert GENERAL APPEARANCE: cooperative ORIENTATION/CONSCIOUSNESS: Yes awake HENMT: COMMON NORMALS: oropharynx normal Eye: OTHER: Significant improvement in redness and swelling of left eyelid with near resolution of periorbital swelling. Eye stays open spontaneously with most of the iris visible. Pupils equal. Vision is blurry without his contact. Neck/C-Spine: COMMON NORMALS: no JVD Resp: COMMON NORMALS: normal respiratory effort and clear to auscultation bilaterally AUSCULTATION: clear to auscultation bilaterally Cardio: COMMON NORMALS: no JVD, regular rhythm, S1 normal heart sound present, S2 normal heart sound present and No murmurs present (Cardio) RHYTHM: regular rhythm HEART SOUNDS: S1 normal heart sound present and S2 normal heart sound present GI: COMMON NORMALS: Normal to inspection, nondistended, normoactive bowel sounds present, Soft to palpation and non-tender PALPATION: Yes Soft to palpation Extremity: COMMON NORMALS: no joint enlargement and no pedal edema Neuro: COMMON NORMALS: patient oriented x3 and moves all extremities SE NSORIUM/ORIENTATION: Yes alert Skin: COMMON NORMALS: no rashes or lesions noted (Apart from orbital cellulitis as above.) GENERAL SKIN EXAM: no rashes or lesions noted (Apart from orbital cellulitis as above.) Data 06/07/22 05:06 06/07/22 05:06 Micro: Microbiology 06/05/22 17:20 Blood Culture - Preliminary Blood NEGATIVE TO DATE 06/05/22 17:15 Blood Culture - Preliminary Blood NEGATIVE TO DATE A&P Assessment and plan (1) Orbital cellulitis on left: Significant improvement compared to yesterday with start decrease in palpable edema and erythema. He is able to keep eyes open spontaneously with most of the iris visible. Near resolution of periorbital edema. Continue IV antibiotic, he is also started on steroids today. He states will not do 2-week total IV antibiotic course. Agrees to continue with oral medication, likely switch to oral Cipro and linezolid plus minus Flagyl empirically since blood culture remains sterile. Per discussion with ophthalmology repeat CT orbits in the morning to confirm there are no residual abscesses needing drainage. Continue empiric antibiotic coverage with ciprofloxacin due to penicillin allergy. Vancomycin was stopped yesterday due to him developing rash and complain of itching during the infusion. Was switched over to linezolid. Flagyl for anaerobic coverage. Continue decongestants. Recommended by his request to switch to oxycodone IR from combination oxycodone acetaminophen as he states those do not work for him as well. If continues to improve he anticipates he will wean off opioid tomorrow. Follow-up with ENT. Plan History of eye surgery, he reports with prior placement of a a stent , although reports that it was done due to him having difficulty moving his eye with healing. States that the stent is still in place. Discussed with Optho. Multifocal sinusitis: Initial treatment as above. Follow-up with ENT. History of kidney stones. EtOH, sometimes nightly up to 2-3 drinks which she states does not get them drawn, no history of withdrawal. Attestations Medical Necessity Statement*: Continue admission for assessment and management of orbital cellulitis. 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
[2022-06-08] VITALS: BP 141/83; PULSE 106; RESP 17; TEMP 36.6; O2SAT 95
[2022-06-08] MEDS: trazodone 50 mg Tablet 25 MG PO (00:59)
[2022-06-08] MEDS: metroNIDAZOLE IV 500 MG/100 ML PREMIX 100 MG IV (03:55)
[2022-06-08 04:00] VITALS: BP 103/56; PULSE 77; RESP 17; TEMP 36.6; O2SAT 96
[2022-06-08] MEDS: ciprofloxacin 400 MG/200 ML PREMIX 200 MG IV (04:16)
[2022-06-08 05:53] LABS: Basophils % 0.2 %; Hematocrit 40.2 % (42.0-52.0); Hemoglobin 13.2 g/dL (11.7-16.6); Lymphocytes # 1.5 10^3/uL (0.8-4.8); Lymphocytes % 14.4 %; Mean Corpuscular HGB Conc 32.8 g/dL (30.0-36.0); Mean Corpuscular Hemoglobin 28.1 pg (28.0-34.0); Mean Corpuscular Volume 85.5 fl (80-94); Mean Platelet Volume 10.4 fL (7.4-10.4); Monocytes # 0.5 10^3/uL (0.2-0.9); Monocytes % 5.1 %; Neutrophils # 8.12 10^3/uL (1.8-7.7); Nucleated Red Blood Cells % 0 %; Platelet Count 278 10^3/cmm (130-400); Red Cell Distribution Width 13.2 % (12.1-15.1); White Blood Count 10.2 10^3/uL (4.0-10.0)
[2022-06-08 06:13] LABS: Anion Gap 14.2 (5-19); Blood Urea Nitrogen 16 mg/dL (6-20); Calcium 8.6 mg/dL (8.5-10.5); Carbon Dioxide 22 mmol/L (22-29); Chloride 104 mmol/L (98-107); Glomerular Filtration Rate 98.4 mL/min (90-130); Glucose 123 mg/dL (65-115); Osmolality Calculated 285 mOsm/kg (285-295); Potassium 4.2 mmol/L (3.5-5.1); Sodium 136 mmol/L (136-145)
[2022-06-08] MEDS: linezolid premix 600 MG/300 ML PREMIX 300 MG IV (06:15)
[2022-06-08 07:32] VITALS: BP 121/67; PULSE 68; RESP 17; TEMP 36.4; O2SAT 99
--- NOTE | 2022-06-08 09:00 | CTR_ITS ---
PROCEDURE INFORMATION: Exam: CT Orbits With Contrast Exam date and time: 06/08/2022 8:51 AM Age: 32 years old Clinical indication: Visual changes or disturbances; Discomfort; Additional info: Follow up to reassess for any residual abscess TECHNIQUE: Imaging protocol: Computed tomography of the orbits with contrast. Radiation optimization: All CT scans at this facility use at least one of these dose optimization techniques: automated exposure control; mA and/or kV adjustment per patient size (includes targeted exams where dose is matched to clinical indication); or iterative reconstruction. Contrast material: OMNI 350; Contrast volume: 100 ml; Contrast route: INTRAVENOUS (IV); COMPARISON: 1. CT orbit BI w con [id number] 06/05/2022 3:13 PM 2. Level. RADIATION DOSE METRICS: Total DLP (mGy-cm): 420.48 FINDINGS: Paranasal sinuses: Extensive left maxillary sinus mucosal thickening similar to prior study, with mild dependent fluid, slightly increased. Persistent opacification of multiple left ethmoid air cells. Persistent mild inferior right frontal sinus mucosal thickening. Orbital cavities: Improved soft tissues thickening in the subperiosteal medial left orbit, maximally measuring approximately 3.1 mm, previously 4.7 mm at the same. The right orbit is unremarkable. The bilateral ocular globes and intraconal soft tissues are unremarkable. Bones/joints: No acute fracture. Soft tissues: Mild left infraorbital soft tissue swelling similar to prior study. CT/CT orbit BI w con [id number] IMPRESSION: 1. Mild interval improvement of left medial orbital findings of orbital cellulitis. 2. Persistent sinusitis.
[2022-06-08] MEDS: predniSONE 20 mg Tablet 80 MG PO (09:16)
[2022-06-08 12:00] VITALS: BP 131/74; PULSE 94; RESP 18; TEMP 36.6; O2SAT 97
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
[2022-06-08 14:06] VITALS: BP 131/74; PULSE 94; RESP 18; TEMP 36.6; O2SAT 97
== END 2022-06-08 14:06 | disposition home or self-care (01) | DRG 122 ==
LOC: ER 18:54 → MEDSURG 20:07
PROVIDERS: Admitting Provider Internal Medicine; Emergency Provider Emergency Medicine; PCP Nurse Practitioner Family; Visit Provider Internal Medicine
DX: H05.012 Cellulitis of left orbit (principal); Z87.442 Personal history of urinary calculi; G89.29 Other chronic pain; M54.9 Dorsalgia, unspecified; Z88.0 Allergy status to penicillin; L27.0 Generalized skin eruption due to drugs and medicaments taken internally; T36.8X5A Adverse effect of other systemic antibiotics, initial encounter; J32.9 Chronic sinusitis, unspecified; Z87.891 Personal history of nicotine dependence; F10.90 Alcohol use, unspecified, uncomplicated
CPT/HCPCS: 36415; 70481; 80048; 80053; 85025; 87040; 96365; 96367; 96375; 96376; 99285; J0744; J1170; J1200; J1885; J2020; J2270; J2405; J3370; J3490; J7050; J7512; Q0163; Q9967

== ENCOUNTER 2024-02-08 08:37 | Emergency (ER) | payer OTHER, SELFPAY ==
[2024-02-08] VITALS (13 sets, daily range): BP systolic 143–185; BP diastolic 83–120; PULSE 65–97; RESP 18; TEMP 36.8; O2SAT 94–100
--- NOTE | 2024-02-08 08:52 | ED_ITS ---
HPI - Back Pain/Injury 2 General: Chief Complaint: Back Pain/Injury Stated Complaint: RT side low abd pain Time Seen by Provider: 02/08/24 08:39 History of Present Illness: 34-year-old male presents emergency room with complaints of right flank pain. Patient's had multiple stones in the past this morning he woke up with severe right-sided flank pain radiating down into the groin. He has not noticed any hematuria he has not had any difficulty with urination. He did have back surgery about a month ago. He has not had any urinary retention. He had multiple kidney stones in the past states this feels like what he had before with kidney stones. Associated symptoms: Deny abdominal pain, chills, dysuria, fever(s) or urinary urgency Related Data Previous Rx's Medication Instructions Recorded ciprofloxacin HCl 500 mg tablet 500 mg PO BID #10 tabs 02/08/24 (Cipro) ketorolac 10 mg tablet 10 mg PO TID PRN pain 3 days #10 02/08/24 tabs oxycodone-acetaminophen 7.5 mg-325 1 tab PO Q6H PRN pain #20 tabs 02/08/24 mg tablet (Percocet) promethazine 25 mg tablet 25 mg PO Q6H PRN nausea and 02/08/24 vomiting #20 tabs tamsulosin 0.4 mg capsule 0.4 mg PO DAILY #30 caps 02/08/24 Allergies Allergy/AdvReac Type Severity Reaction Status Date / Time Penicillins Allergy ALGY-Swell Verified 10/24/22 10:10 Lip/Tongue/Throat Review of Systems 2 Const: Denies: fever(s) or chills Card: Denies: chest pain Resp: Denies: dyspnea GI: Denies: abdominal pain : Reports: flank pain; Denies: dysuria, urinary frequency or urinary urgency Musc: Denies: neck pain or back pain Skin/Breast: Denies: rash PFSH ED 2 PFSH: Medical History Renal stones Surgical History Hx of inguinal hernia repair History of eye surgery left History of nasal surgery stent Family History Mother Heart disease Father Hyperlipidemia Hypertension Social History Smoking and tobacco/nicotine status: former use of tobacco/nicotine Alcohol intake: current Alcohol type: hard liquor Substance/Drug Use: never Marital status: Current occupational status: employed Current occupation: works in the [employer] Physical Exam 2 Const: COMMON NORMALS: no acute distress GENERAL APPEARANCE: cooperative and comfortable ORIENTATION/CONSCIOUSNESS: Yes awake, Yes oriented to person, Yes oriented to place and Yes oriented to time HENMT: COMMON NORMALS: normocephalic, atraumatic and hearing grossly normal bilaterally HEAD & SCALP: normocephalic and atraumatic Resp: COMMON NORMALS: normal respiratory effort, No retractions, No use of accessory muscles and clear to auscultation bilaterally AUSCULTATION: clear to auscultation bilaterally Cardio: COMMON NORMALS: regular rate, regular rhythm and No murmurs present (Cardio) RATE: regular rate RHYTHM: regular rhythm GI: COMMON NORMALS: Soft to palpation and No hepatosplenomegaly present A USCULTATION: Yes normoactive bowel sounds PALPATION: Yes Soft to palpation, No Tenderness to palpation present (GI), No Guarding due to palpation present (GI) and Yes No hepatosplenomegaly present Extremity: COMMON NORMALS: normal to inspection, capillary refill normal, no clubbing, cyanosis or edema, no calf tenderness and no pedal edema Neuro: SENSORIUM/ORIENTATION: Yes oriented to person, Yes oriented to place and Yes oriented to time Skin: COMMON NORMALS: no rashes or lesions noted GENERAL SKIN EXAM: no rashes or lesions noted Course 2 Vital Signs: Vital signs: Vital Signs Temperature 98.2 F 02/08/24 08:45 Pulse Rate 97 02/08/24 15:36 Respiratory Rate 18 02/08/24 13:03 Blood Pressure 143/83 02/08/24 15:36 Pulse Oximetry 95 02/08/24 15:36 Oxygen Delivery Me thod Room Air 02/08/24 15:34 MDM - Back Pain/Injury Medical Decision Making Titrating antibiotics is a 5 mm mid ureteral stone. Patient had relatively poor response to high-dose narcotics. The stone shows obstruction I discussed with urology they were okay with Toradol. After Toradol patient is significantly improved prefers to go home. Will discharge home as per urology recommendations. Discussed with the on-call doctor from [facility] will be lifted potentially transferring him to. He does recommend antibiotics since there is a slight elevation of white count over this no white blood cells in the urine. Will start on Percocet and Toradol for pain promethazine as needed also add tamsulosin and have him strain his urine. Case management make arrangements for follow-up with Dr. Valdez at [facility]. Medical Records I reviewed the patient's medical records. Labs I reviewed the patient's lab results. 02/08/24 08:55 02/08/24 08:55 Radiology Impressions Abdomen/Pelvis CT 02/08/24 08:58 IMPRESSION: 1. Findings compatible with obstruction right upper urinary tract due to approximately 5 mm calcific stone proximal right ureter. 2. Additional nonobstructing stones, calculi kidneys bilaterally. 3. Nonspecific bowel pattern. Correlate for ileus versus possible mild partial small bowel obstruction, possible adhesions. 4. Suggestion of small hiatal hernia. Wall thickening distal esophagus, hiatal hernia region. Correlation with endoscopy may be helpful. 5. Please see body of report for additional findings. Laboratory Results WBC 12.15 10^3/uL (3.29-11.43) H 02/08/24 08:55 RBC 5.14 10^6/uL (3.85-5.65) 02/08/24 08:55 Hgb 14.10 g/dL (11.27-16.99) 02/08/24 08:55 Hct 43.5 % (37-53) 02/08/24 08:55 MCV 84.6 fl (82-101) 02/08/24 08:55 MCH 27.4 pg (27-33) 02/08/24 08:55 MCHC 32.4 g/dL (30-55) 02/08/24 08:55 RDW 14.1 % (12.1-15.1) 02/08/24 08:55 Plt Count 346 10^3/cmm (157-399) 02/08/24 08:55 MPV 9.3 fL (7.4-10.4) 02/08/24 08:55 Neut % (Auto) 73.5 % 02/08/24 08:55 Lymph % (Auto) 16.9 % 02/08/24 08:55 Bollinger % (Auto) 5.0 % 02/08/24 08:55 Eos % (Auto) 3.5 % 02/08/24 08:55 Baso % (Auto) 0.7 % 02/08/24 08:55 Neut # (Auto) 8.93 10^3/uL (1.8-7.7) H 02/08/24 08:55 Lymph # (Auto) 2.1 10^3/uL (0.8-4.8) 02/08/24 08:55 Bollinger # (Auto) 0.6 10^3/uL (0.2-0.9) 02/08/24 08:55 Eos # (Auto) 0.4 10^3/uL (0.0-0.8) 02/08/24 08:55 Baso # (Auto) 0.1 10^3/uL (0.0-0.1) 02/08/24 08:55 Nucleated RBC % (auto) 0 % 02/08/24 08:55 Nucleated RBCs # 0.0 /100WBC 02/08/24 08:55 Sodium 135 mmol/L (136-145) L 02/08/24 08:55 Potassium 4.4 mmol/L (3.5-5.1) 02/08/24 08:55 Chloride 100 mmol/L (98-107) 02/08/24 08:55 Carbon Dioxide 18 mmol/L (22-29) L 02/08/24 08:55 Anion Gap 21.4 (5-19) H 02/08/24 08:55 BUN 14 mg/dL (6-20) 02/08/24 08:55 Creatinine 1.1 mg/dL (0.7-1.2) 02/08/24 08:55 GFR Calculation 77.1 mL/min (90-130) L 02/08/24 08:55 Glucose 150 mg/dL (65-115) H 02/08/24 08:55 Calculated Osmolality 283 mOsm/kg (285-295) L 02/08/24 08:55 Calcium 9.8 mg/dL (8.5-10.5) 02/08/24 08:55 Total Bilirubin 0.4 mg/dL (0.15-1.2) 02/08/24 08:55 AST 20 U/L (0-40) 02/08/24 08:55 ALT 27 U/L (0-41) 02/08/24 08:55 Alkaline Phosphatase 107 U/L (40-130) 02/08/24 08:55 Total Protein 8.5 g/dL (6.6-8.7) 02/08/24 08:55 Albumin 4.6 g/dL (3.5-5.2) 02/08/24 08:55 Globulin 3.9 g/dL (1.3-4.6) 02/08/24 08:55 Urine Color Yellow (Yellow) 02/08/24 11:34 Urine Appearance Slightly cloudy (CLEAR) 02/08/24 11:34 Urine pH 5.5 (5-7) 02/08/24 11:34 Ur Specific Hustler 1.022 (1.005-1.030) 02/08/24 11:34 Urine Protein Trace (Negative) H 02/08/24 11:34 Urine Glucose (UA) Norm (Normal) 02/08/24 11:34 Urine Ketones Negative (Negative) 02/08/24 11:34 Urine Blood 3+ (Negative) A 02/08/24 11:34 Urine Nitrate Negative (Negative) 02/08/24 11:34 Urine Bilirubin Neg (Negative) 02/08/24 11:34 Urine Urobilinogen Norm mg/dL (Negative) 02/08/24 11:34 Ur Leukocyte Esterase Negative (Negative) 02/08/24 11:34 Urine RBC 21-50 /hpf (0-2) H 02/08/24 11:34 Urine WBC 0-5 /hpf (0-5) 02/08/24 11:34 Ur Squamous Epith Cells 0-5 /hpf (0-5) 02/08/24 11:34 Amorphous Sediment Not Reportable 02/08/24 11:34 Urine Bacteria None seen /hpf (NONE) 02/08/24 11:34 Hyaline Casts 0-4 /lpf H 02/08/24 11:34 All radiology interpretation(s) finalized by discharge Discharge Plan Discharge Patient Disposition: Home Clinical Impression: Nephrolithiasis Condition: Stable Prescriptions: New promethazine 25 mg tablet 25 mg PO Q6H PRN (Reason: nausea and vomiting) Qty: 20 0RF Percocet 7.5-325 mg tablet 1 tab PO Q6H PRN (Reason: pain) Qty: 20 0RF tamsulosin 0.4 mg capsule 0.4 mg PO DAILY Qty: 30 0RF ketorolac 10 mg tablet 10 mg PO TID PRN (Reason: pain) 3 Days Qty: 10 0RF Cipro 500 mg tablet 500 mg PO BID Qty: 10 0RF Discharge Orders: Discharge ED (Routine); Ordered 02/08/24 Ordered By: Bernardo Trinidad Referrals: Lilly Khan FNP-C [Primary Care Provider] - Discharge Diet: Usual diet Discharge Activity: Resume usual activity Patient Instructions: Kidney Stones (ED), How to Strain Your Urine (ED), Opioid Safety, Pain Management Activity Restrictions/Additional Instructions: Thank you for choosing [facility] for your healthcare needs today. It is very important that you follow up as instructed or that you return to the Emergency Department should you have concerns or if your condition changes or worsens in any way. You were seen today for a pain in your right side testing showed you had a kidney stone. Recommend that you use medications given today as needed to control your pain. Will set you up for follow-up appoint with Dr. Valdez of urologist at [facility]. If pain becomes uncontrolled return to the emergency room Coding Level of Care Code ED Supervisor Partial Denture Department for Margarito Antoine
--- NOTE | 2024-02-08 08:58 | CTR_ITS ---
PROCEDURE INFORMATION: Exam: CT Abdomen And Pelvis Without Contrast Exam date and time: 02/08/2024 9:06 AM Age: 34 years old Clinical indication: Abdominal pain; Localized; Right; Prior surgery; Surgery date: 6+ months; Surgery type: Hernia, L spine; Additional info: Flank pain TECHNIQUE: Imaging protocol: Computed tomography of the abdomen and pelvis without contrast. Radiation optimization: All CT scans at this facility use at least one of these dose optimization techniques: automated exposure control; mA and/or kV adjustment per patient size (includes targeted exams where dose is matched to clinical indication); or iterative reconstruction. COMPARISON: CT kidney stone [id number] 04/27/2020 12:02 PM RADIATION DOSE METRICS: Total DLP (mGy-cm): 453 FINDINGS: Limitations: Images degraded by artifact from metallic hardware of spine. Lungs: Visualized portions lung bases included appear clear bilaterally. Diaphragm: Suggestion of small hiatal hernia. Wall thickening distal esophagus, hiatal hernia region. Liver: Noncontrasted liver unremarkable. Gallbladder and biliary ducts: Gallbladder appears relatively small. No calcific stones seen of the gallbladder. Possible folds versus polyps or noncalcified stones, sludge of gallbladder. Gallbladder does not appear enlarged/distended. No obvious pericholecystic fluid seen. No bile duct dilatation seen. Pancreas: Noncontrasted pancreas unremarkable. Spleen: Noncontrasted spleen unremarkable. Adrenal glands: Noncontrasted adrenals unremarkable. Kidneys and ureters: Dilation right renal collecting system, right renal pelvis, proximal right ureter down to level of approximately 5 mm calcific stone projecting near level of superior endplate L3 vertebral body. 3 mm nonobstructing stone mid right kidney. Additional small nonobstructing stones left kidney. Evidence right peripelvic, periureteral stranding, fluid. Stomach and bowel: Mildly dilated proximal small bowel, probably mainly duodenum, jejunum, with relatively decompressed distal small bowel, terminal. Suggestion of some angulation, perhaps tethering portions of small bowel. Mild wall thickening versus lack of distension portions of colon. Moderate stool and gas of the colon. Appendix: No acute appendicitis seen. Intraperitoneal space: No free intraperitoneal air and no free abdominal nor pelvic fluid collections seen. Vasculature: No aneurysm seen of abdominal aorta. Lymph nodes: Scattered small lymph nodes, nonspecific. Urinary bladder: Urinary bladder appears partly filled. Reproductive: Calcification prostate. Seminal vesicles unremarkable. Bones/joints: Curvature spine. Postoperative changes metallic rods, screws, interbody device lumbar spine. Soft tissues: Small fat containing umbilical/paraumbilical hernia. CT/CT kidney stone [id number] IMPRESSION: 1. Findings compatible with obstruction right upper urinary tract due to approximately 5 mm calcific stone proximal right ureter. 2. Additional nonobstructing stones, calculi kidneys bilaterally. 3. Nonspecific bowel pattern. Correlate for ileus versus possible mild partial small bowel obstruction, possible adhesions. 4. Suggestion of small hiatal hernia. Wall thickening distal esophagus, hiatal hernia region. Correlation with endoscopy may be helpful. 5. Please see body of report for additional findings.
[2024-02-08 09:02] LABS: Basophils # 0.1 10^3/uL (0.0-0.1); Basophils % 0.7 %; Eosinophils # 0.4 10^3/uL (0.0-0.8); Eosinophils % 3.5 %; Hematocrit 43.5 % (37-53); Lymphocytes # 2.1 10^3/uL (0.8-4.8); Lymphocytes % 16.9 %; Mean Corpuscular HGB Conc 32.4 g/dL (30-55); Mean Corpuscular Hemoglobin 27.4 pg (27-33); Mean Corpuscular Volume 84.6 fl (82-101); Mean Platelet Volume 9.3 fL (7.4-10.4); Monocytes # 0.6 10^3/uL (0.2-0.9); Neutrophils # 8.93 10^3/uL (1.8-7.7); Neutrophils % 73.5 %; Nucleated Red Blood Cells % 0 %; Platelet Count 346 10^3/cmm (157-399); Red Blood Count 5.14 10^6/uL (3.85-5.65); Red Cell Distribution Width 14.1 % (12.1-15.1); White Blood Count 12.15 10^3/uL (3.29-11.43)
[2024-02-08] MEDS: ondansetron 2 mg/ML SDV 2 mL 4 MG IVP (09:27)
[2024-02-08] MEDS: morphine 4 mg/mL SDV 1 mL IVP ×3 (09:27→10:10)
[2024-02-08] MEDS: sodium chloride 0.9% 1,000 ML 999 ML IV ×2 (09:31→13:10)
[2024-02-08 09:39] LABS: Alanine Aminotransferase 27 U/L (0-41); Albumin Level 4.6 g/dL (3.5-5.2); Alkaline Phosphatase 107 U/L (40-130); Anion Gap 21.4 (5-19); Aspartate Amino Transferase 20 U/L (0-40); Blood Urea Nitrogen 14 mg/dL (6-20); Calcium 9.8 mg/dL (8.5-10.5); Carbon Dioxide 18 mmol/L (22-29); Chloride 100 mmol/L (98-107); Globulin 3.9 g/dL (1.3-4.6); Glomerular Filtration Rate 77.1 mL/min (90-130); Glucose 150 mg/dL (65-115); Osmolality Calculated 283 mOsm/kg (285-295); Potassium 4.4 mmol/L (3.5-5.1); Sodium 135 mmol/L (136-145); Total Bilirubin 0.4 mg/dL (0.15-1.2); Total Protein 8.5 g/dL (6.6-8.7)
--- NOTE | 2024-02-08 09:46 | PC.NURSE ---
PER DR. CHANDRA, ADMIN MORPHINE 4MG IVP ONCE.
--- NOTE | 2024-02-08 10:06 | PC.NURSE ---
PER DR. CHANDRA, ADMIN MORPHINE 4MG IVP ONCE FOR PAIN.
[2024-02-08] MEDS: HYDROmorphone 1 mg/mL INJ 1 mL 0.5 MG IVP ×2 (10:46→13:03)
--- NOTE | 2024-02-08 10:48 | PC.NURSE ---
PER DR. CHANDRA, ADMIN REGLAN 10MG IVP ONCE.
[2024-02-08] MEDS: metoclopramide 5 mg/mL SDV 2 mL 10 MG IVP (10:54)
[2024-02-08 11:39] LABS: Charge for UA Resulting for Rev
[2024-02-08 12:01] LABS: Bacteria Urine None Seen /hpf; Hyaline Casts Urine 0-4 /lpf; RBC Urine 21-50 /hpf (0-2); Squamous Epithelial Cell Urine 0-5 /hpf (0-5); WBC Urine 0-5 /hpf (0-5)
[2024-02-08 12:36] LABS: Bilirubin Urine Neg (Negative); Blood Urine 3+ (Negative); Glucose Urine UA Norm (Normal); Ketones Urine Negative (Negative); Leukocyte Esterase Urine Negative (Negative); Nitrate Urine Negative (Negative); Protein Urine Trace (Negative); Specific Gravity, Urine 1.022 (1.005-1.030); Urine Appearance Slightly Cloudy (CLEAR); Urine Color Yellow (Yellow); Urobilinogen Urine Norm (Negative); pH Urine 5.5 (5-7)
[2024-02-08 12:37] LABS: Add Urine Culture? Yes
[2024-02-08] MEDS: ketorolac 30 mg/mL INJ IVP (14:11)
[2024-02-08] MEDS: cefTRIAXone 1,000 mg SDV 1000 MG IVP (14:11)
== END 2024-02-08 15:37 | disposition home or self-care (01) ==
PROVIDERS: Emergency Provider Family Medicine; PCP Nurse Practitioner Family
DX: N20.0 Calculus of kidney (principal); Z87.891 Personal history of nicotine dependence
CPT/HCPCS: 36415; 74176; 80053; 81003; 81015; 85025; 87086; 96361; 96374; 96375; 96376; 99285; J0696; J1170; J1885; J2270; J2405; J2765; J7030

== ENCOUNTER 2024-03-01 12:20 | Outpatient (CLI) | payer OTHER, SELFPAY ==
--- NOTE | 2024-03-01 12:25 | XR_ITS ---
WS: [id number] Exam: XR lumbar spine 2-3V* [id number] Date/Time of Exam: 03/01/2024 12:43 PM Reason For Exam: ARTHRODESIS STATUS There is spinal fusion at the L4-5 level with pedicle screws and posterior rods. An intervening disc spacer is noted. The fusion is in good alignment. No sign of hardware complication. The remaining dis c spaces are preserved. Remaining posterior elements appear normal. XR/XR lumbar spine 2-3V* [id number] IMPRESSION: 1. Stable appearing L4-5 fusion.
== END 2024-03-01 12:21 | disposition home or self-care (01) ==
LOC: RAD 12:21
PROVIDERS: PCP Nurse Practitioner Family; Visit Provider Nurse Practitioner Family
DX: Z98.1 Arthrodesis status (principal)
CPT/HCPCS: 72100

== ENCOUNTER 2024-10-30 12:11 | Emergency (ER) | payer OTHER, SELFPAY ==
[2024-10-30 12:20] VITALS: BP 137/82; PULSE 77; RESP 16; TEMP 36.6; O2SAT 98; BMI 27.7
--- NOTE | 2024-10-30 13:23 | W.ED.BACK ---
HPI - Back Pain/Injury General: Chief Complaint: Back Pain/Injury Stated Complaint: back pain Time Seen by Provider: 10/30/24 12:44 History of Present Illness: This patient is a 34-year-old white male who presents to the emergency department complaining of a pulled muscle in his left lower back. He states this happened on . He was seen in the clinic and states he was given an injection of Toradol which only lasted about 3 hours. There is no radiation of the pain down his legs. No incontinence of urine or stool. Related Data Previous Rx's ?Medication ?Instructions ?Recorded ciprofloxacin HCl 500 mg tablet 500 mg PO BID #10 tabs 02/08/24 (Cipro) oxycodone-acetaminophen 7.5 mg-325 1 tab PO Q6H PRN pain #20 tabs 02/08/24 mg tablet (Percocet) promethazine 25 mg tablet 25 mg PO Q6H PRN nausea and 02/08/24 vomiting #20 tabs tamsulosin 0.4 mg capsule 0.4 mg PO DAILY #30 caps 02/08/24 ibuprofen 800 mg tablet 800 mg PO TID #30 tabs 10/30/24 orphenadrine citrate 100 mg 100 mg PO BID #20 tabs 10/30/24 tablet,extended release tramadol 37.5 mg-acetaminophen 325 1 tab PO Q4H PRN pain #30 tabs 10/30/24 mg tablet Allergies Allergy/AdvReac Type Severity Reaction Status Date / Time Penicillins Allergy ALGY-Swell Verified 10/30/24 12:26 Lip/Tongue/Throat Review of Systems General: Reports: 10 or more systems reviewed and unremarkable except in HPI and below Musc: Reports: back pain PFSH ED PFSH: Medical History Renal stones Surgical History Hx of inguinal hernia repair History of eye surgery left History of nasal surgery stent Family History Mother Heart disease Father Hyperlipidemia Hypertension Social History Smoking and tobacco/nicotine status: former use of tobacco/nicotine Alcohol intake: current Alcohol type: hard liquor Substance/Drug Use: never Marital status: Current occupational status: employed Current occupation: works in the [employer] Physical Exam Const: COMMON NORMALS: patient oriented x3 and no limitations GENERAL APPEARANCE: cooperative HENMT: COMMON NORMALS: normocephalic, atraumatic, Normal nasal mucous membranes and turbinates present, moist oral mucous membranes and oropharynx normal HEAD & SCALP: normal to inspection, normocephalic and atraumatic FACE & SINUS: normal facial exam NOSE: Normal nasal mucous membranes and turbinates present Eye: COMMON NORMALS: Equal, round and reactive pupils present, EOMs intact bilaterally and conjunctivae normal GENERAL EYE: appearance normal, both eyes and all related structures CONJUNCTIVA: Yes conjunctivae normal PUPIL: Yes Equal, round and reactive pupils present Neck/C-Spine: COMMON NORMALS: supple and no JVD Chest: COMMONS NORMALS: normal inspection of the chest Resp: COMMON NORMALS: normal respiratory effort and clear to auscultation bilaterally AUSCULTATION: clear to auscultation bilaterally Cardio: COMMON NORMALS: no JVD, regular rate, regular rhythm, No gallops present (Cardio), No murmurs present (Cardio) and No rub (Cardio) RATE: regular rate RHYTHM: regular rhythm GI: COMMON NORMALS: Normal to inspection, nondistended, normoactive bowel sounds present, Soft to palpation and non-tender AUSCULTATION: Yes normoactive bowel sounds PALPATION: Yes Soft to palpation Back/Pelvis: LUMBAR SPINE/LOWER BACK: Yes paraspinal muscle tenderness and Yes paraspinal muscle spasm Extremity: COMMON NORMALS: normal to inspection Neuro: COMMON NORMALS: patient oriented x3 and CN's II-XII intact bilaterally Psych: COMMON NORMALS: mental status grossly normal, Normal thought process present and cooperative THOUGHT PROCESS: Normal thought process present Skin: COMMON NORMALS: no rashes or lesions noted, turgor normal and no jaundice GENERAL SKIN EXAM: no rashes or lesions noted and turgor normal Course Vital Signs: Vital signs: Vital Signs Temperature 97.8 F 10/30/24 12:20 Pulse Rate 77 10/30/24 12:20 Respiratory Rate 16 10/30/24 12:20 Blood Pressure 137/82 10/30/24 12:20 Pulse Oximetry 98 10/30/24 12:20 Oxygen Delivery Me thod Room Air, Nasal C annula 10/30/24 12:20 MDM - Back Pain/Injury Medical Decision Making Patient was given injections of morphine, Toradol and Norflex. He was discharged in stable condition with prescriptions for tramadol, Norflex and ibuprofen. Recommended he follow-up with his primary care provider in 1 week if not resolved. No radiology studies performed this visit Discharge Plan Discharge Patient Disposition: Home Clinical Impression: Strain of lumbar region Qualifiers: Encounter type: initial encounter Qualified Code(s): S39.012A - Strain of muscle, fascia and tendon of lower back, initial encounter Condition: Stable Prescriptions: New tramadol-acetaminophen 37.5-325 mg tablet 1 tab PO Q4H PRN (Reason: pain) Qty: 30 0RF ibuprofen 800 mg tablet 800 mg PO TID Qty: 30 0RF orphenadrine citrate 100 mg tablet extended release 100 mg PO BID Qty: 20 0RF No Action promethazine 25 mg tablet 25 mg PO Q6H PRN (Reason: nausea and vomiting) Qty: 20 0RF Percocet 7.5-325 mg tablet 1 tab PO Q6H PRN (Reason: pain) Qty: 20 0RF tamsulosin 0.4 mg capsule 0.4 mg PO DAILY Qty: 30 0RF Cipro 500 mg tablet 500 mg PO BID Qty: 10 0RF Discharge Orders: Discharge ED (Routine); Ordered 10/30/24 Ordered By: Best Brown Referrals: Lilly Khan FNP-C [Primary Care Provider, Family Practice] Patient Instructions: Low Back Strain (ED), Opioid Safety, Pain Management Activity Restrictions/Additional Instructions: Follow-up with your primary care provider in 1 week if not resolved. Print Language: Faroese Coding Level of Care Code ED Natural Resource Technician for Margarito Antoine
[2024-10-30] MEDS: ketorolac 60 mg/2 mL INJ IM (13:32)
[2024-10-30] MEDS: orphenadrine 30 mg/mL Inj 2 mL 60 MG IM (13:32)
[2024-10-30] MEDS: morphine 4 mg/mL SDV 1 mL 10 MG IM (13:32)
[2024-10-30] MEDS: ondansetron hcl ODT 4 mg Tab PO (13:32)
[2024-10-30 14:02] VITALS: BP 131/61; PULSE 79; O2SAT 98
== END 2024-10-30 14:03 | disposition home or self-care (01) ==
PROVIDERS: Emergency Provider Emergency Medicine; PCP Nurse Practitioner Family
DX: S39.012A Strain of muscle, fascia and tendon of lower back, initial encounter (principal); Z87.891 Personal history of nicotine dependence; X58.XXXA Exposure to other specified factors, initial encounter
CPT/HCPCS: 96372; 99284; J1885; J2270; J2360; Q0162

== ENCOUNTER 2025-02-15 20:29 | Emergency (ER) | payer OTHER, SELFPAY ==
--- OUTSIDE RECORDS SUMMARY | 2024-08-02 04:30 | XMS_ITS ---
Author Organization [facility] Address [address] [place] [address] Care Team Providers Care Cherry Sorter Name Role Phone Windy ANDREWS, Taylor Primary Care Provider Unav ailPeg Becerra Unavailable Cody Nash Unavailable [phone] REASON FOR VISIT lumbar radiculopathy Encounters Encounter Location Date Provider Diagnosis [facility] [address] [place] [address] 08/02/2024 Cody Nash Plan Of Treatment Next Appt Details Provider Name:Peg Price, 02/28/2025 11:00:00 AM, [address] [place], [address], Progress Notes * Anjel SEYMOUR ADOB: 1 (35 yo M)Acc No.[id number]:08/02/2024 Progress Notes Patient: Anjel Knight A Provider: Freddy Nash MD :1990 A ge:34 Y S ex:Male Date:08/02/2024 Address:[address] [place] [id number] Pcp:Taylor Temple MD Subjective: * Chief Complaints: * L umbar radiculopathy Care Plan Details* * Electronic signature of Matt Nash MD on 02/15/2025 at 08:34 PM CDT Sign off status: Pending * Provider: Freddy Nash MD Date: 0 08/02/2024 Generated for Omar wagner/Martin/Sam on: 0 02/15/2025 08:34 PM CDT
--- OUTSIDE RECORDS SUMMARY | 2025-02-15 20:34 | XMS_ITS | Patient Health Record ---
Author Organization [facility] Address [address] [place] [address] Care Team Providers Care [employer] Name Role Phone Taylor Temple MD Primary Care Provider UnaPeg Roblero Unavailable Cody Nash Unavailable [phone] Estrella Diaz Unavailable [phone] Miguel Tatum Unavailable [phone] Allergies Allergen (clinical drug ingredient) Drug/Non Drug Allergy documented on EMR Reaction Allergy Type Onset Date Status No Known Drug Allergy Unknown Drug Allergy Active Results Component Value Reference Range Notes Schedule Confirmation (Not y et reviewed by provider) Interpretation: Performing Lab: Notes/Report: MRI Lumbar Spine w/o Cont MRI Lumbar Spine w/o Cont-72 148 (Not yet reviewed by provider) Interpretation: Performing Lab: Notes/Report: [id number]=iSite MRI Lumbar Spine w/o Cont-72 148 (Not yet reviewed by provider) Interpretation: Performing Lab: Notes/Report: See Below For Report Technique: Sagittal and axial T1 and T2 and sagittal STIR images of Diagnosis Description: Arthrodesis status Read See Below For Report MRI Thoracic Spine w/o Cont- 09984 (Not yet reviewed by provider) Interpretation: Performing Lab: Notes/Report: [id number]=iSite Schedule Confirmation (Not y et reviewed by provider) Interpretation: Performing Lab: Notes/Report: MRI Thoracic Spine w/o Cont Schedule Confirmation (Not y et reviewed by provider) Interpretation: Performing Lab: Notes/Report: MRI Thoracic Spine w/o Cont Schedule Confirmation (Not y et reviewed by provider) Interpretation: Performing Lab: Notes/Report: MRI Thoracic Spine w/o Cont- 64150 (Not yet reviewed by provider) Interpretation: Performing Lab: Notes/Report: See Below For Report MRI Thoracic Spine w/o Cont Diagnosis Description: Radiculopathy, lumbar region Read See Below For Report Schedule Confirmation (Not y et reviewed by provider) Interpretation: Performing Lab: Notes/Report: Schedule Confirmation (Not y et reviewed by provider) Interpretation: Performing Lab: Notes/Report: MRI Lumbar Spine w/o Cont Schedule Confirmation (Not y et reviewed by provider) Interpretation: Performing Lab: Notes/Report: MRI Lumbar Spine w/o Cont Schedule Confirmation (Not y et reviewed by provider) Interpretation: Performing Lab: Notes/Report: MRI Lumbar Spine w/o Cont Schedule Confirmation (Not y et reviewed by provider) Interpretation: Performing Lab: Notes/Report: MRI Lumbar Spine w/o Cont Reason For Referral Reason lumbar radiculopathy Diagnosis 1 Lumbar radiculopathy (M54.16) Referring Provider First Name Taylor Referring Provider Last Name [facility] Referring Provider Speciality Family Med icine Referred Organization [facility] [place] Referred Provider Cody Nash Referred Address [address] [facility] [place] [place], [place],[address], Referred Provider Specialty Neurosurgery Referral Priority Routine Reason EMG/NCV study of the bilateral lower extremities Diagnosis 1 Lumbar radiculopathy (M54.16) Diagnosis 2 Pain in left thigh ( M79.652) Diagnosis 3 Pain in right thigh (M79.651) Referral Organization [facility] [place] Referring Provider First Name Cody Referring Provider Last Name Saad Referring Provider Speciality Neurosurge ry Referred Provider [facility], Physi l[facility] (Main) Referred Provider Specialty Physical The rapist Referral Priority Routine Social History Tobacco Use: Social History Observation Description Date Details (start date - stop date) Never Smoker NA - NA Social History Household: Social Info Question Answer Notes Household Marital status: Tobacco Use: Social Info Question Answer Notes Tobacco Control (Standard) Tobacco use: Nonsmoker Additional Details Category Social Info Options Details Miscellaneous: Current Employment Status Unemployed, not on disability Drugs/Alcohol: Do you drink alcohol? Yes, Socially Problems Problem Type SNOMED Code ICD Code Onset Dates Problem Status W/U Status Risk Notes Problem Chronic pain syndrome (503733772) Chronic pain syndrome (G89.4) Active confirmed Problem Lumbosacral spondylosis without myelopathy (disorder) (47613429) Spondylosis without myelopathy or radiculopathy, lumbosacral region (M47.817) Active confirmed Problem Lumbar radiculopathy (712834847) Lumbar radiculopathy (M54.16) Active confirmed Problem Annular tear of lumbar disc (765254050) Annular tear of lumbar disc (M51.36) Active confirmed Problem Bilateral sacroiliitis (8251588849) Bilateral sacroiliitis (M46.1) Active confirmed Problem Degeneration of lumbar intervertebral disc (69324998) Degenerative disc disease, lumbar (M51.36) Active confirmed Problem Acquired spondylolisthesis (087030058) Spondylolisthesis at L4-L5 level (M43.16) Active confirmed Problem Lumbosacral radiculopathy (3383126) Lumbosacral radiculopathy (M54.17) Active confirmed Problem Degeneration of lumbar intervertebral disc (64977052) Disc degeneration, lumbar (M51.36) Active confirmed Problem Acquired spondylolisthesis (112885175) Anterolisthesis of lumbar spine (M43.16) Active confirmed Vital Signs Heart Rate 84 /min 08/02/2024 Temperature 98.0 degrees Fahrenheit 08/02/2024 Respiratory Rate 20 /min 08/02/2024 Height-cm 172.72 cm 08/02/2024 Oximetry 98 % 08/02/2024 Blood pressure diastolic 72 mm Hg 08/02/2024 Weight-kg 86.18 kg 08/02/2024 Height 68 in 08/02/2024 Blood pressure systolic 128 mm Hg 08/02/2024 Weight 190 lbs 08/02/2024 BMI 28.89 kg/m2 08/02/2024 Procedures Procedure Date Ordered Date Performed Result Body Sit e Inj. SI Joint w/ imaging connor tamar (CT or fluoroscopy) - 00913 09/28/2024 09/28/2024 N/A Conscious Sedation, Professi onal Only - 62538 09/28/2024 09/28/2024 N/A Encounters Encounter Location Date Provider Diagnosis [facility] [place] [address] [place] [address] 03/01/2024 Estrella Diaz Arthrodesis status Z98.1 ; Lumbar radiculopathy M54.16 ; Spondylolisthesis at L4-L5 level M43.16 and Lumbar back pain M54.50 [facility] [place] [address] [place] [address] 07/19/2024 Peg Rueda-Kayla ce Chronic pain syndrome G89.4 ; Low back pain M54.50 ; Lumbosacral radiculopathy M54.17 ; Spondylosis without myelopathy or radiculopathy, lumbosacral region M47.817 ; Myalgia, other site M79.18 and Other penitentiary (current) drug therapy Z79.899 [facility] [place] [address] [place] [address] 08/02/2024 Cody Nash Arthrodesis status Z98.1 ; Lumbar radiculopathy M54.16 ; Lumbar back pain M54.50 ; Numbness of both lower extremities R20.0 ; Thoracic spine pain M54.6 ; Pain in right thigh M79.651 and Pain in left thigh M79.652 [facility] [place] [address] [place] [address] 08/16/2024 Peg Rueda-Kayla ce Chronic pain syndrome G89.4 ; Low back pain M54.50 ; Lumbosacral radiculopathy M54.17 ; Spondylosis without myelopathy or radiculopathy, lumbosacral region M47.817 ; Myalgia, other site M79.18 ; Other penitentiary (current) drug therapy Z79.899 and Disorder of sacrum M53.3 [facility] [address] [facility] [place] [address] 09/28/2024 Peg Rueda-Kayla ce Bilateral sacroiliitis M46.1 [facility] [address] [facility] [place] [address] 10/11/2024 Peg Rueda-Kayla ce Chronic pain syndrome G89.4 ; Low back pain M54.50 ; Lumbosacral radiculopathy M54.17 ; Spondylosis without myelopathy or radiculopathy, lumbosacral region M47.817 ; Myalgia, other site M79.18 ; Disorder of sacrum M53.3 and Other termite control representative (current) drug therapy Z79.899 [facility] [address] [place] [address] [facility] [place] [address] 04/19/2024 Miguel Tatum [facility] [address] [facility] [place] [address] 06/12/2024 Peg addison Chronic pain syndrome G89.4 ; Lumbosacral radiculopathy M54.17 ; Myalgia, other site M79.18 ; penitentiary (current) use of opiate analgesic Z79.891 ; Other termite control representative (current) drug therapy Z79.899 ; Spondylosis without myelopathy or radiculopathy, lumbosacral region M47.817 and Low back pain M54.50 [facility] [address] [place] [address] 07/21/2024 Peg addison Assessments Encounter Date Diagnosis (ICD Code) Assessment Notes Treatment Notes Treatment Clinical Notes Section Notes 03/01/2024 Arthrodesis status (ICD-10 - Z98.1) 03/01/2024 Lumbar radiculopathy (ICD-10 - M54.16) 06/12/2024 Chronic pain syndrome (ICD-10 - G89.4) 06/12/2024 Lumbosacral radiculopathy (ICD-10 - M54.17) 07/19/2024 Chronic pain syndrome (ICD-10 - G89.4) Mr. Wallace is a pleasant gentleman and retired who I last saw in March 2024 as he did not show up for his follow up appointment. He continues to have low back and leg pain ongoing after a L4/[address] Nash in November. We do not have any updated imaging since the surgery. He continues to have radicular symptoms. He denies any bowel or bladder incontinence. It is medically necessary to obtain an updated MRI for pre-procedural planning. He is seeing Dr. Nash here within the next week or so as well. 07/19/2024 Low back pain (ICD-10 - M54.50) 08/02/2024 Arthrodesis status (ICD-10 - Z98.1) 08/02/2024 Lumbar radiculopathy (ICD-10 - M54.16) 09/28/2024 Bilateral sacroiliitis (ICD-10 - M46.1) 10/11/2024 Chronic pain syndrome (ICD-10 - G89.4) Mr. aWllace is a pleasant gentleman and . He reports about 30% relief ongoing after his SI injection. However, his posterior lateral hip pain is now nearly resolved. He does have a positive Kemps on examination today. We could consider doing a bilateral L3/4 and L5/S1 medial branch block. He is fused at L4/5. I did talk to him today about bilateral middle cluneal nerve stimulators for him. He'd like to hold off until after his medial branch blocks 10/11/2024 Low back pain (ICD-10 - M54.50) 08/16/2024 Chronic pain syndrome (ICD-10 - G89.4) Mr. Wallace is a pleasant patient. Since we last saw him, he obtained a T-spine and L-spine MRI. 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 I discussed with him that 50% of folks after a fusion can develop SI joint dysfunction within 6 months. I discussed with him performing SI joint injections and I'll give him a short course of Tramadol as [place] did not help alleviate his symptoms as much as the Tramadol did in the past. He'll call in 7 days time to report how he's doing with that medication. Then, I can refill the remaining 23 days worth. 08/16/2024 Low back pain (ICD-10 - M54.50) 08/16/2024 Lumbosacral radiculopathy (ICD-10 - M54.17) 10/11/2024 Lumbosacral radiculopathy (ICD-10 - M54.17) 08/02/2024 Lumbar back pain (ICD-10 - M54.50) 07/19/2024 Lumbosacral radiculopathy (ICD-10 - M54.17) 06/12/2024 Myalgia, other site (ICD-10 - M79.18) 03/01/2024 Spondylolisthesis at L4-L5 level (ICD-10 - M43.16) 03/01/2024 Lumbar back pain (ICD-10 - M54.50) 06/12/2024 penitentiary (current) use of opiate analgesic (ICD-10 - Z79.891) 07/19/2024 Spondylosis without myelopathy or radiculopathy, lumbosacral region (ICD-10 - M47.817) 08/02/2024 Numbness of both lower extremities (ICD-10 - R20.0) 10/11/2024 Spondylosis without myelopathy or radiculopathy, lumbosacral region (ICD-10 - M47.817) Patient has imaging, history, and physical exam consistent with pain generated from spondylosis of the lumbar region. Patient has tried conservative measures including medication with limited benefit and physical therapy and is currently undergoing a home exercise regimen. Imaging studies suggest no other obvious cause of pain (such as fracture, tumor, infection, or significant extraspinal lesion. They have had a decrease in their quality of life as a result of this pain. This pain is impairing their ability to perform ADLs and care for their family. This pain is also interfering with their ability to work. They now have had to increase their medication use. It is medically necessary to proceed with this procedure, risks and expectations of the procedures were discussed with the patient and they agreed to proceed. The patient understands that this is a diagnostic block. The options for treatment were explained in detail, this included PT, medications, injections, lifestyle modifications and exercise. Will proceed with Bilateral L3/L4 and L5/S1 Medial Branch Blocks, if more than 80% relief of pain and/or function it will be medically necessary to proceed with Bilateral L4/L5 and L5/S1 medial branch RFTC 08/16/2024 Spondylosis without myelopathy or radiculopathy, lumbosacral region (ICD-10 - M47.817) 08/16/2024 Myalgia, other site (ICD-10 - M79.18) 10/11/2024 Myalgia, other site (ICD-10 - M79.18) 08/02/2024 Thoracic spine pain (ICD-10 - M54.6) 07/19/2024 Myalgia, other site (ICD-10 - M79.18) 06/12/2024 Other penitentiary (current) drug therapy (ICD-10 - Z79.899) 06/12/2024 Spondylosis without myelopathy or radiculopathy, lumbosacral region (ICD-10 - M47.817) 07/19/2024 Other termite control representative (current) drug therapy (ICD-10 - Z79.899) 08/02/2024 Pain in right thigh (ICD-10 - M79.651) 10/11/2024 Disorder of sacrum (ICD-10 - M53.3) 08/16/2024 Other termite control representative (current) drug therapy (ICD-10 - Z79.899) 08/16/2024 Disorder of sacrum (ICD-10 - M53.3) Patient has history, and physical exam and imaging consistent with pain generated from disorder of sacrum with three out of five exams positive for disorder of sacrum mediated pain. I discussed with the patient pursuing sacroiliac joint injections with ultrasound guidance. Risks and expectations of the procedure were discussed with the patient, and they agree to proceed. Ultrasound is needed for needle localization into joint and to decrease the risk of intravascular injection. The options for treatment were explained in detail, this included PT, medications, injections, lifestyle modifications and exercise. Will proceed with bilateral SI joint injections with sedation The aforementioned procedure is medically necessary to be performed with minimal sedation. This sedation is necessary to ensure patient comfort and cooperation, while also minimizing anxiety and discomfort. 10/11/2024 Other penitentiary (current) drug therapy (ICD-10 - Z79.899) 08/02/2024 Pain in left thigh (ICD-10 - M79.652) 06/12/2024 Low back pain (ICD-10 - M54.50) 03/01/2024 Other given patients c/o extreme pain, will obtain imaging and labs. f/u after. xray reviewed. hardware appears stable. no acute changes noted. rx for meloxicam 15mg 1 po daily and gabapentin 300mg bid were hand written [facility] as he states that he cannot afford his meds otherwise. 07/19/2024 Other Hortensia Ferro am scribing for Dr. Rowe. I, Dr. Rowe, personally performed the services described in this documentation, as scribed by Hortensia Merrill, and it is both accurate and complete. 08/02/2024 Other The patient is having increased low back pain and bilateral lower extremity pain. He says he has numbness in both of his legs and his son has to help put his pants on due to the increased pain. He has tenderness with palpation in the low thoracic and lupper lumbar spine. The MR imaging of the lumbar spine shows nothing to correlate with his symptoms. The L4-5 fusion appears stable, no disc herniations and/or stenosis noted. I explained to the patient that I do not have an answer for him today. Additional work up is needed for proper assessment and plan of treatment. I will order an MRI of the thoracic spine for additional information and an EMG/NCV study of the bilateral lower extremities to assess the muscles and the nerves. I will see him back for a follow-up after the imaging and nerve conduction study are completed. The patient is in agreement. ROS reviewed I Shanon Turner LPN am scribing for, and in the presence of Cody Nash MD. ICody, personally performed the services described in this documentation, as scribed by Shanon Turner LPN in my presence, and it is both accurate and complete. 08/16/2024 Other Hortensia Ferro am scribing for Dr. Rowe. I, Dr. Rowe, personally performed the services described in this documentation, as scribed by Hortensia Merrill, and it is both accurate and complete. 10/11/2024 Other Hortensia Ferro am scribing for Dr. Rowe. IDr. Rowe, personally performed the services described in this documentation, as scribed by Hortensia Merrill, and it is both accurate and complete. Plan Of Treatment Pending Test Test Name Order Date Prothrombin Time 71483 12/02/2023 Prothrombin Time 03567 12/17/2023 ABORh 48591, 15752 12/17/2023 ABORh 76294, 89689 12/02/2023 Antibody Screen 43235 12/02/2023 Antibody Screen 81695 12/17/2023 Basic Metabolic Panel (BMP) 88270 2023 Basic Metabolic Panel (BMP) 30136 2023 CBC w\ Auto Diff 81358 12/17/2023 CBC w\ Auto Diff 76083 12/02/2023 Partial Thromboplastin Time 02771 2023 Partial Thromboplastin Time 48439 2023 Chest PA/Lat-07778 12/02/2023 Chest PA/Lat-67591 12/17/2023 Lumbosacral Spine AP/Lat-99422 MRI Lumbar Spine w/o Cont-46186 08/03/19 25 MRI Lumbar Spine w/o Cont-29716 08/03/19 25 MRI Thoracic Spine w/o Cont-51355 2024 MRI Thoracic Spine w/o Cont-62574 2024 XR Outside CD 10/13/2023 Chest 1V 12/28/2023 Chest 1V 12/28/2023 Electrocardiogram 12 Lead Tracing-56659 12/02/2023 Abdomen Acute Series-23113 12/28/2023 Abdomen Acute Series-87690 12/28/2023 BB ABORH-50125,66349 12/17/2023 zzzFluoroscopy 12/25/2023 zzzMRI Outside CD 10/28/2023 Schedule Confirmation 03/29/2024 Schedule Confirmation 04/27/2024 Schedule Confirmation 04/27/2024 Schedule Confirmation 08/10/2024 Schedule Confirmation 08/15/2024 Schedule Confirmation 08/15/2024 Schedule Confirmation 08/10/2024 Schedule Confirmation 08/02/2024 Schedule Confirmation 08/02/2024 IH Lumbosacral Spine AP/Lat - 72073 08/0 06/2023 IH Lumbosacral Spine AP/Lat - 93982 07/10/2023 IH Lumbosacral Spine AP/Lat - 35044 11/30 Future Test Test Name Order Date Lumbosacral Spine AP/Lat-39341 CBC w\ Auto Diff 07601 03/01/2024 CRP 38258 03/01/2024 MRI Lumbar Spine w/o Cont-66906 07/19/19 25 Facet Inj. / MBB Lumbar/Sacral, 2 levels - 47125, 78902 10/12/2024 Facet Inj. / MBB Lumbar/Sacral, 2 levels - 79363, 88286 10/13/2024 Next Appt Details Provider Name:Peg Condon Dee, 02/28/2025 11:00:00 AM, [address] [place], [address], Insurance Providers Payer Name Payer Address Payer Phone Subscriber Number Group Number Insured Name Patient Relationship to Insured Coverage Start Date Coverage End Date [employer] [address] [place] [phone] [id number] Anjel Wallace Self - patient is the insured Medical (General) History Medical History History ICD Code hypertension Headache, migraine Depression kidney stones Surgical History Surgery Date(Month/Year) L4-5 TLIF 11/2023 Hospitalization History Reason Date(Month/Year) See Surgical Hx
--- OUTSIDE RECORDS SUMMARY | 2025-02-15 20:34 | XMS_ITS | Patient Health Record ---
Author Organization [address] [place] [address] [employer] Address [address] [place] [id number] Care Team Providers Care Carpenter Form Name Role Phone Bethel Sandeep Primary Care Provider [phone] Results Component Value Reference Range Notes Urine Dip Reviewed date:12/21/2024 08:56:42 AM Interpretation:OK for Patient Performing Lab: Notes/Report: Testing performed at the [address] [place] [address] location. U COL Yellow Yellow U TURB Clear Clear U SG 1.010 1.000-1.030 U PH 8 5.0-8.0 U PRO neg Negative mg/dL U GLU norm Normal mg/dL U KET neg Negative mg/dL U BILI neg Negative mg/dL U BLD neg Negative FLORES/ul U NIT neg Negative U LEUK 25 Negative ROXANA/uL U UBG norm Normal mg/dl Procedure: DOT Physical Reviewed date:12/21/2024 08:58:29 AM Interpretation: Performing Lab: Notes/Report: Reason For Referral No Information Vital Signs Heart Rate 71 /min 12/21/2024 Temperature 97.5 degrees Fahrenheit 12/21/2024 Respiratory Rate 18 /min 12/21/2024 Height-cm 175.26 cm 12/21/2024 Oximetry 98 12/21/2024 Blood pressure diastolic 84 mm Hg 12/21/2024 Weight-kg 85.73 Kg 12/21/2024 Height 69 in 12/21/2024 Blood pressure systolic 124 mm Hg 12/21/2024 Weight 189.0 lbs 12/21/2024 BMI 27.91 kg/m2 12/21/2024 Encounters Encounter Location Date Provider Diagnosis [facility] [address] [place] [id number] 12/21/2024 Sandeep Hugo Encounter for examination required by Department of Transportation (DOT) Z02.89 Assessments Encounter Date Diagnosis (ICD Code) Assessment Notes Treatment Notes Treatment Clinical Notes Section Notes 12/21/2024 Encounter for examination required by Department of Transportation (DOT) (ICD-10 - Z02.89) See scanned document Plan Of Treatment No Information Insurance Providers Payer Name Payer Address Payer Phone Subscriber Number Group Number Insured Name Patient Relationship to Insured Coverage Start Date Coverage End Date [employer] [id number] [place] [id number] Anjel Wallace Self - patient is the insured
[2025-02-15 20:47] VITALS: BP 147/86; PULSE 95; RESP 18; TEMP 36.6; O2SAT 98; BMI 28.6
--- NOTE | 2025-02-15 22:09 | W.ED.BACK ---
HPI - Back Pain/Injury General: Chief Complaint: Back Pain/Injury Stated Complaint: Back and hip pain Time Seen by Provider: 02/15/25 20:33 Source: patient Mode of arrival: ambulatory Limitations: no limitations History of Present Illness: Patient is a 35-year-old male who presents the emergency department complaining of acute on chronic lower back pain radiating to bilateral buttock region. States this is all stemming from an injury in the [employer] greater than a year ago, he has underwent physical therapy but states he had to quit due to time restraints. Also states [facility] but this is not until the end of the month. No bowel or bladder incontinence or saddle anesthesia. No recent trauma. States he has been over working himself recently at work. Does not report any fevers, trauma, unexplained weight loss, neurological symptoms, IVDU, steroid use, or history of cancer. MD elicited complaint: back pain Pertinent past history: prior back pain Severity: similar to previous episodes Location: lumbar spine, right lower back and left lower back Radiation: left upper leg and right upper leg Exacerbating factors: movement Associated symptoms: Deny abdominal pain, difficulty walking, fecal incontinence, fever(s) or syncope Related Data Previous Rx's ?Medication ?Instructions ?Recorded ibuprofen 800 mg tablet 800 mg PO TID #30 tabs 10/30/24 orphenadrine citrate 100 mg 100 mg PO BID #20 tabs 10/30/24 tablet,extended release tramadol 37.5 mg-acetaminophen 325 1 tab PO Q4H PRN pain #30 tabs 10/30/24 mg tablet Allergies Allergy/AdvReac Type Severity Reaction Status Date / Time amoxicillin Allergy ALGY-Swell Verified 02/15/25 20:55 Lip/Tongue/Throat Penicillins Allergy ALGY-Swell Verified 10/30/24 12:26 Lip/Tongue/Throat Review of Systems General: Reports: 10 or more systems reviewed and unremarkable except in HPI and below Const: Reports: other (denies trauma); Denies: fever(s), change in weight or night sweats Card: Denies: chest pain, lightheadedness or syncope Resp: Denies: dyspnea GI: Denies: abdominal pain or fecal incontinence : Denies: urinary incontinence Musc: Reports: back pain; Denies: neck pain or extremity pain Skin/Breast: Denies: rash or skin pain Neuro: Denies: headache(s), numbness in extremities, weakness in extremities, sensory changes, lack of coordination, difficulty walking, frequent falls or involuntary movements PFSH ED PFSH: Medical History Renal stones Surgical History Hx of inguinal hernia repair History of eye surgery left History of nasal surgery stent Family History Mother Heart disease Father Hyperlipidemia Hypertension Social History Smoking and tobacco/nicotine status: former use of tobacco/nicotine Alcohol intake: current Alcohol type: hard liquor Substance/Drug Use: never Marital status: Current occupational status: employed Current occupation: works in the [employer] Physical Exam Const: COMMON NORMALS: no acute distress, patient oriented x3, no limitations, healthy appearing and alert Resp: COMMON NORMALS: normal respiratory effort, No retractions, No use of accessory muscles and clear to auscultation bilaterally AUSCULTATION: clear to auscultation bilaterally Cardio: COMMON NORMALS: regular rate, regular rhythm, S1 normal heart sound present and S2 normal heart sound present RATE: regular rate RHYTHM: regular rhythm HEART SOUNDS: S1 normal heart sound present and S2 normal heart sound present Back/Pelvis: OTHER: Normal visual examination. No spinous process tenderness or paracervical, parathoracic, or paralumbar tenderness to palpation. Pain with range of motion. Extremity: COMMON NORMALS: normal to inspection and full ROM Neuro: COMMON NORMALS: patient oriented x3, moves all extremities, no focal motor deficits, no sensory deficits noted, deep tendon reflexes 2+ bilaterally and gait normal SENSORIUM/ORIENTATION: Yes alert OTHER: L3, L4, L5, and S1 nerve sensations intact. Normal knee jerk and ankle jerk reflexes. Skin: COMMON NORMALS: no rashes or lesions noted GENERAL SKIN EXAM: no rashes or lesions noted Course Vital Signs: Vital signs: Vital Signs Temperature 97.8 F 02/15/25 20:47 Pulse Rate 95 02/15/25 20:47 Respiratory Rate 18 02/15/25 20:47 Blood Pressure 147/86 02/15/25 20:47 Pulse Oximetry 98 02/15/25 20:47 Oxygen Delivery Me thod Room Air 02/15/25 20:47 MDM - Back Pain/Injury Medical Decision Making Patient presented with acute on chronic low back pain, no recent trauma, no red flag symptoms with history or exam. Treated with medications here, encouraged [facility] and continue plan for nerve block injections. No need for imaging or lab work at this time. Nontoxic-appearing and stable for discharge home. No radiology studies performed this visit Discharge Plan Discharge Condition: Stable Prescriptions: No Action tramadol-acetaminophen 37.5-325 mg tablet 1 tab PO Q4H PRN (Reason: pain) Qty: 30 0RF ibuprofen 800 mg tablet 800 mg PO TID Qty: 30 0RF orphenadrine citrate 100 mg tablet extended release 100 mg PO BID Qty: 20 0RF Referrals: Lilly Khan FNP-C [Primary Care Provider, Family Practice] Print Language: Bulgarian Coding Level of Care Code ED Material Preparation Worker for Margarito Antoine
[2025-02-15] MEDS: HYDROmorphone 0.5 MG/0.5 ML INJ 1 MG IVP (22:13)
[2025-02-15] MEDS: orphenadrine 30 mg/mL Inj 2 mL 60 MG IVP (22:23)
[2025-02-15 22:52] VITALS: BP 161/84; PULSE 80; O2SAT 90
== END 2025-02-15 22:56 | disposition home or self-care (01) ==
PROVIDERS: Emergency Provider Physician Assistant; PCP Nurse Practitioner Family
DX: M54.50 Low back pain, unspecified (principal)
CPT/HCPCS: 96374; 96375; 99284; J1100; J1171; J1885; J2360

== ENCOUNTER 2025-03-23 23:02 | Emergency (ER) | payer OTHER, SELFPAY ==
[2025-03-23 23:05] VITALS: BP 152/95; PULSE 99; RESP 18; TEMP 36.8; O2SAT 96
--- OUTSIDE RECORDS SUMMARY | 2025-03-23 23:10 | XMS_ITS | Data Portability ---
Author Organization [place] - [facility] [employer] - [facility] Address [address] [address] Assessment No assessment recorded. Plan of Treatment Reminders Order Date Submit Date Provider Last Modified By Organization Details Last Modified Time Details Appointments None record ed. Lab None record ed. Referral None record ed. Procedures None record ed. Surgeries None record ed. Imaging None record ed. Medication Orders None record ed. Patient TargetsNo targets recorded. Patient InstructionsNo instructions recorded. Reason for Referral None Reported. Medical Equipment None Reported. Allergies Allergen ID Allergen Name Allergen Category Reaction Reaction Severity Criticality Documentation Date Start Date Code Code System Note Provider Name and Address Organization Details Recorded Time 70986 Product containin g penicilli n (product) medicatio n Not available Not available Not available 04/16/2018 21325 8001 SNOMED Judy reeves [place] - [facility] 8 18:43:33 Medications Not known to be on any medication Vitals Date Recorded Body height Body mass index (BMI) Body weight Heart rate Oxygen saturation Oxygen saturation in Arterial blood by Pulse oximetry Body temperature Systolic And Diastolic Provider Name and Address Organization Details Last Updated DateTime 8 177.8 cm 25.1 kg/m2 70632.6 6 g 89 /min 95 % 95 % 99.4 [degF] 129/84 mm[Hg] Judy Velez [place] - [facility] 8 18:43:15 Social History None recorded. Functional Status None recorded. Mental Status None recorded. Family History Nothing Reported. Medical History No medical history recorded. Past Encounters Encounter ID Performer Location Encounter Start Date Encounter Closed Date Diagnosis/Indication Diagnosis SNOMED-CT Code Diagnosis ICD10 Code Diagnosis IMO Codes Diagnosis Note [id number] MORENITA Salazar [facility] [address] [facility] [address] 04/16/2018 17:22:09 04/16/2018 19:04:53 Health Concerns Section Related Observation LastModified by Organization Zeny limon LastModified Time None Recorded Concern Status LastModified by Organization Details LastModified Time None Recorded Advance Directives Directive None Recorded Payers Insurance Date Sequence Insurance Name Policy Number Policy Aldana Covered Member ID Aldana Member ID Guarantor Name 04/16/2018 1 *SELF PAY* Iliana Wallace
--- NOTE | 2025-03-23 23:12 | XRR_ITS ---
PROCEDURE INFORMATION: Exam: XR Chest Exam date and time: 03/23/2025 11:17 PM Age: 35 years old Clinical indication: Pain; Angina pectoris; Additional info: Cp TECHNIQUE: Imaging protocol: Radiologic exam of the chest. Views: 1 view. COMPARISON: CR XR chest 2V* [id number] 03/07/2022 10:42 AM FINDINGS: Lungs: Unremarkable. No consolidation. Pleural spaces: Unremarkable. No pleural effusion. No pneumothorax. Heart/Mediastinum: Unremarkable. No cardiomegaly. Bones/joints: Unremarkable. XR/XR chest 1V portable [id number] IMPRESSION: No acute findings.
--- NOTE | 2025-03-23 23:12 | ECG_ITS ---
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 Measurements Intervals [place] Rate: 97 P: 75 DC: 166 QRS: 79 QRSD: 100 T: 67 QT: 322 QTc: 410 Interpretive Statements SINUS RHYTHM No previous ECG available for comparison Electronically Signed On 03-24-2025 15:24:09 CDT by Roc Ramey M.D. [email or web address]
--- NOTE | 2025-03-24 00:38 | W.ED.CHESTPA ---
HPI - Chest Pain General: Chief Complaint: Chest Pain Stated Complaint: Chest Pain Time Seen by Provider: 03/23/25 23:55 History of Present Illness: 35yo M w/cc of sharp pain in the thoracic back region/scapular region that radiated to the chest. Pain started around 9:00 while patient was watching TV. Patient denies pain with exertion such as when he walked into the emergency department. He states it is little bit worse with breathing and movement of his arm. Patient denies fever, upper respiratory symptoms, cough, hemoptysis, syncope, diaphoresis, abdominal pain, nausea, vomiting, lower extremity edema or asymmetry. Patient takes exogenous testosterone. Has not had any recent surgery, denies history of DVT/PE or recent immobilization. He does not take medications for diabetes, high blood pressure or high cholesterol. He does not have a significant family history of for heart disease. He does not have a personal history of heart disease. Related Data Previous Rx's ?Medication ?Instructions ?Recorded orphenadrine citrate 100 mg 100 mg PO BID #20 tabs 10/30/24 tablet,extended release tramadol 37.5 mg-acetaminophen 325 1 tab PO Q4H PRN pain #30 tabs 10/30/24 mg tablet Allergies Allergy/AdvReac Type Severity Reaction Status Date / Time amoxicillin Allergy ALGY-Swell Verified 02/15/25 20:55 Lip/Tongue/Throat Penicillins Allergy ALGY-Swell Verified 10/30/24 12:26 Lip/Tongue/Throat vancomycin Allergy ALGY-Swell Verified 03/23/25 23:13 Lip/Tongue/Throat COUNT INCLUDES THE [facility] ED PFSH: Medical History (Updated 03/24/25 @ 01:37 by Ambar Aguilar MD) Renal stones Surgical History Hx of inguinal hernia repair History of eye surgery left History of nasal surgery stent Family History Mother Heart disease Father Hyperlipidemia Hypertension Social History Smoking and tobacco/nicotine status: former use of tobacco/nicotine Alcohol intake: current Alcohol type: hard liquor Substance/Drug Use: never Marital status: Current occupational status: employed Current occupation: works in the [employer] Physical Exam Narrative: EXAM NARRATIVE: Vital signs were reviewed. Patient is alert and oriented. Patient is breathing comfortably, no increased WOB or accessory muscle use. SpO2 is above 95% on RA. Patient has clear lungs b/l, no rhonchi, wheezing or crackles. No hypotension or tachycardia. Patient has pain with palpation of the muscles around the scapula and thoracic back, states that is where his pain is coming from. Abdomen is soft, nondistended and nontender. Patient is moving all extremities, no deformity or gross injury. No lower extremity edema or asymmetry. Course Vital Signs: Vital signs: Vital Signs Temperature 98.3 F 03/23/25 23:05 Pulse Rate 99 03/23/25 23:05 Respiratory Rate 18 03/23/25 23:05 Blood Pressure 152/95 03/23/25 23:05 Pulse Oximetry 96 03/23/25 23:05 MDM - Chest Pain Medical Decision Making 35-year-old male with a chief complaint of thoracic back pain with radiation to the chest. This is nonexertional and does not radiate to neck or arms or jaw. He does not have a significant history of heart disease. Differential diagnosis includes, but is not limited to, ACS, myocarditis, pericarditis, pneumonia, viral upper respiratory infection, PE, GERD, pneumothorax, MSK pain. other. On initial exam, patient is hemodynamically stable nontoxic appearing. EKG was personally reviewed and interpreted and shows normal sinus rhythm with a heart rate of 97, normal axis, normal intervals, no evidence of ST segment elevation. Patient was evaluate CBC, BMP, troponin, D-dimer, EKG, chest x-ray. He was treated with IV Toradol, p.o. Tylenol and p.o. Valium for muscle spasms. Patient has a normal white blood cell count and is not anemic. He has a normal baseline troponin and a normal D-dimer. Chest x-ray does not show pneumothorax, consolidation or pleural effusion. Patient has a heart score of 1 and is low risk for ACS. Pain is most consistent with musculoskeletal pain. At this time, patient is appropriate for discharge and follow-up with primary care physician. Patient was counseled on supportive care at home, given return precautions and discharged in stable condition with recommendation for outpatient follow-up with primary care nurse or doctor. Lab Data 03/24/25 00:45 03/24/25 00:45 Radiology Impressions Chest X-Ray 03/23/25 23:12 IMPRESSION: No acute findings. Laboratory Results WBC 8.55 10^3/uL (3.29-11.43) 03/24/25 00:45 RBC 4.79 10^6/uL (3.85-5.65) 03/24/25 00:45 Hgb 13.70 g/dL (11.27-16.99) 03/24/25 00:45 Hct 40.0 % (37-53) 03/24/25 00:45 MCV 83.5 fl (82-101) 03/24/25 00:45 MCH 28.6 pg (27-33) 03/24/25 00:45 MCHC 34.3 g/dL (30-55) 03/24/25 00:45 RDW 13.1 % (12.1-15.1) 03/24/25 00:45 Plt Count 278 10^3/cmm (157-399) 03/24/25 00:45 MPV 9.0 fL (7.4-10.4) 03/24/25 00:45 Neut % (Auto) 62.2 % 03/24/25 00:45 Lymph % (Auto) 22.8 % 03/24/25 00:45 [place] % (Auto) 10.3 % 03/24/25 00:45 Eos % (Auto) 3.9 % 03/24/25 00:45 Baso % (Auto) 0.6 % 03/24/25 00:45 Neut # (Auto) 5.32 10^3/uL (1.8-7.7) 03/24/25 00:45 Lymph # (Auto) 2.0 10^3/uL (0.8-4.8) 03/24/25 00:45 [place] # (Auto) 0.9 10^3/uL (0.2-0.9) 03/24/25 00:45 Eos # (Auto) 0.3 10^3/uL (0.0-0.8) 03/24/25 00:45 Baso # (Auto) 0.1 10^3/uL (0.0-0.1) 03/24/25 00:45 Nucleated RBC % (auto) 0 % 03/24/25 00:45 Nucleated RBCs # 0.0 /100WBC 03/24/25 00:45 D-Dimer 0.36 ug/mLFEU (0-0.59) 03/24/25 00:49 Sodium 138 mmol/L (136-145) 03/24/25 00:45 Potassium 4.4 mmol/L (3.5-5.1) 03/24/25 00:45 Chloride 102 mmol/L (98-107) 03/24/25 00:45 Carbon Dioxide 23 mmol/L (22-29) 03/24/25 00:45 Anion Gap 17.4 (5-19) 03/24/25 00:45 BUN 13 mg/dL (6-20) 03/24/25 00:45 Creatinine 1.1 mg/dL (0.7-1.2) 03/24/25 00:45 GFR Calculation 76.6 mL/min (90-130) L 03/24/25 00:45 Glucose 98 mg/dL (65-115) 03/24/25 00:45 Calculated Osmolality 286 mOsm/kg (285-295) 03/24/25 00:45 Calcium 9.9 mg/dL (8.5-10.5) 03/24/25 00:45 Total Bilirubin 0.5 mg/dL (0.15-1.2) 03/24/25 00:45 AST 24 U/L (0-40) 03/24/25 00:45 ALT 36 U/L (0-41) 03/24/25 00:45 Alkaline Phosphatase 98 U/L (40-130) 03/24/25 00:45 Troponin T Baseline < 6 ng/L (0-15) 03/24/25 00:45 Total Protein 7.4 g/dL (6.6-8.7) 03/24/25 00:45 Albumin 4.8 g/dL (3.5-5.2) 03/24/25 00:45 Globulin 2.6 g/dL (1.3-4.6) 03/24/25 00:45 All radiology interpretation(s) finalized by discharge EKG Data EKG 1: Interpretation: EKG was personally reviewed and interpreted and shows normal sinus rhythm with a heart rate of 97, normal axis, normal intervals, no evidence of ST segment elevation. Discharge Plan Discharge Patient Disposition: Home Clinical Impression: Non-cardiac chest pain, Muscle spasm Back pain, thoracic Qualifiers: Chronicity: acute Back pain laterality: left Qualified Code(s): M54.6 - Pain in thoracic spine Condition: Stable Prescriptions: No Action tramadol-acetaminophen 37.5-325 mg tablet 1 tab PO Q4H PRN (Reason: pain) Qty: 30 0RF orphenadrine citrate 100 mg tablet extended release 100 mg PO BID Qty: 20 0RF Discharge Orders: Discharge ED (Routine); Ordered 03/24/25 Ordered By: Ambar Aguilar Referrals: Lilly Khan FNP-C [Primary Care Provider, Family Practice] Patient Instructions: Opioid Safety, Pain Management, Patient Portal & Biju Instructions, Chest Pain - Chest Wall, Thoracic Pain (ED), Muscle Spasm (ED) Activity Restrictions/Additional Instructions: Please continue to monitor your condition closely at home. Take Ibuprofen 400mg and Tylenol 500-1000mg every six hours for pain and inflammation. You may also use heat and lidocaine patches for relief of your pain. If your condition worsens or additional concerns arise, please return promptly to the emergency department for reassessment. Follow up with your primary care doctor in one week. Print Language: Bahamian Coding Level of Care Code ED Machine Featheredger And Reducer for Chg Fwd Heart Score HEART Score Components History: Slightly Suspicous EKG: Normal Age: Less than 45 yrs Risk Factors: 1 or 2 Risk Factors (Vaping/tobacco) Troponin: Baseline Trop <16 ng/L HEART Score RESULT HEART Score: 1
[2025-03-24 01:02] LABS: Hematocrit 40.0 % (37-53); Hemoglobin 13.70 g/dL (11.27-16.99); Mean Corpuscular HGB Conc 34.3 g/dL (30-55); Mean Corpuscular Hemoglobin 28.6 pg (27-33); Mean Corpuscular Volume 83.5 fl (82-101); Nucleated Red Blood Cells % 0 %; Platelet Count 278 10^3/cmm (157-399); Red Blood Count 4.79 10^6/uL (3.85-5.65); White Blood Count 8.55 10^3/uL (3.29-11.43)
[2025-03-24 01:18] LABS: Alanine Aminotransferase 36 U/L (0-41); Albumin Level 4.8 g/dL (3.5-5.2); Alkaline Phosphatase 98 U/L (40-130); Anion Gap 17.4 (5-19); Aspartate Amino Transferase 24 U/L (0-40); Blood Urea Nitrogen 13 mg/dL (6-20); Calcium 9.9 mg/dL (8.5-10.5); Carbon Dioxide 23 mmol/L (22-29); Chloride 102 mmol/L (98-107); Creatinine Clr Calc Pharmacy 104.1268; Globulin 2.6 g/dL (1.3-4.6); Glucose 98 mg/dL (65-115); Osmolality Calculated 286 mOsm/kg (285-295); Potassium 4.4 mmol/L (3.5-5.1); Sodium 138 mmol/L (136-145); Total Protein 7.4 g/dL (6.6-8.7)
[2025-03-24 01:19] LABS: Troponin(5th) Baseline < 6 ng/L (0-15)
[2025-03-24 02:13] LABS: Glucose Urine UA Negative (Normal); Nitrate Urine Negative (Negative); Specific Gravity, Urine 1.027 (1.005-1.030)
[2025-03-24 02:15] LABS: Add Urine Microscopic? YES
== END 2025-03-24 02:21 | disposition home or self-care (01) ==
PROVIDERS: Emergency Provider Emergency Medicine; PCP Nurse Practitioner Family
DX: R07.89 Other chest pain (principal); M62.838 Other muscle spasm; M54.6 Pain in thoracic spine
CPT/HCPCS: 36415; 71045; 80053; 81001; 84484; 85025; 85378; 93005; 96374; 99285; J1885; J9999